=== PATIENT | male | born 1960 | race Caucasian/White ===

== ENCOUNTER 2017-03-18 20:44 | Emergency (ER) | payer BC ==
[2017-03-18] MEDS ORDERED: Metoclopramide 10 MG/2 ML SDV IV ONE (21:02)
[2017-03-18] MEDS ORDERED: HYDROmorphone 2 MG/ML Syringe IVPUSH ONE (21:02)
[2017-03-18] MEDS ORDERED: Ondansetron 4 MG/2 ML SDV IVPUSH ONE (21:02)
[2017-03-18] MEDS ORDERED: diphenhydrAMINE 50 MG/ML SDV IVPUSH ONE (21:02)
[2017-03-18] MEDS ORDERED: Sodium Chloride 0.9% 2.5 ML Syringe FLUSH PRN (21:02)
[2017-03-18] MEDS ORDERED: Sodium Chloride 0.9% 10 ML Syringe FLUSH PRN (21:02)
[2017-03-18] MEDS ORDERED: Sodium Chloride 0.9% 1,000 ML IV ONE (21:02)
[2017-03-18 21:06] VITALS: BP 142/79
--- NOTE | 2017-03-18 21:06 | EDM.PDOC ---
ED HPI GENERAL MEDICAL PROBLEM - General Chief Complaint: Headache Stated Complaint: SEVERE HEADACHES Time Seen by Provider: 03/18/17 20:55 - History of Present Illness INITIAL COMMENTS - FREE TEXT/NARRATIVE: HISTORY AND PHYSICAL: History of present illness: Patient is a 56-year-old white male with history of hypertension and non-insulin -dependent diabetes who presents with concern of headache 2-3 weeks he thought this was dental in origin E did see his dentist he had a cavity that was repaired he has been on antibiotics for this problem. He states this is left- sided he equivocates regarding photophobia he has had nausea without vomiting he states is located primarily in the temporal area and is unilateral and left- sided he denies trauma neck stiffness neck pain he denies history of chronic headaches he states he has had headaches but they've usually resolve with just aspirin or Tylenol he's never been told he has migraines and has no family history of such Review of systems: As per history of present illness and below otherwise all systems reviewed and negative. Past medical history: As per history of present illness and as reviewed below otherwise noncontributory. Surgical history: As per history of present illness and as reviewed below otherwise noncontributory. Social history: No reported history of drug or alcohol abuse. Family history: As per history of present illness and as reviewed below otherwise noncontributory. Physical exam: HEENT: Atraumatic, normocephalic, pupils reactive, negative for conjunctival pallor or scleral icterus, mucous membranes moist, throat clear, neck supple, nontender, trachea midline. Lungs: Clear to auscultation, breath sounds equal bilaterally, chest nontender. Heart: S1S2, regular, negative for clicks, rubs, or JVD. Abdomen: Soft, nondistended, nontender. Negative for masses or hepatosplenomegaly. Negative for costovertebral tenderness. Pelvis: Stable nontender. Genitourinary: Deferred. Rectal: Deferred. Extremities: Atraumatic, negative for cords or calf pain. Neurovascular unremarkable. Neuro: Awake, alert, oriented. Cranial nerves II through XII unremarkable. Cerebellum unremarkable. Motor and sensory unremarkable throughout. Exam nonfocal. Diagnostics: CBC CMP ESR EKG chest x-ray CT brain CT maxillofacial/sinus Therapeutics: Normal saline 1 L bolus Dilaudid 1 mg IV Reglan 10 mg IV Benadryl 50 mg IV Zofran 4 mg IV Impression: #1 cephalgia #2 history of hypertension #3 history of non-insulin diabetes Definitive disposition and diagnosis as appropriate pending reevaluation and review of above. - Related Data Allergies Allergy/AdvReac Type Severity Reaction Status Date / Time No Known Allergies Allergy Verified 07/04/15 13:20 Home Meds: Home Meds Gabapentin [Neurontin] 1 - 2 tab PO BEDTIME 07/04/15 [History] Insulin Aspart [NovoLOG] 14 unit SQ TIDMEALS 07/04/15 [History] Insulin Glarg,Human.Rec.Analog [Lantus] 44 unit SQ ACBREAKFAST 07/04/15 [History ] Liraglutide [Victoza] 1.2 mg SQ DAILY 07/04/15 [History] Lisinopril 1 tab PO DAILY 07/04/15 [History] metFORMIN HCl [Metformin HCl] 1 tab PO ACBREAKFAST 07/04/15 [History] metFORMIN HCl [Metformin HCl] 2 tab PO WITHDINNER 07/04/15 [History] Past Medical History HEENT History: Reports: Sinusitis Other HEENT History: Hearing aid on Left Cardiovascular History: Reports: Hypertension Other Respiratory History: Sleep apnea with Machine Other Musculoskeletal History: hx: Fracturing Cheekbone, Hands and a foot Endocrine/Metabolic History: Reports: Diabetes, Type II - Past Surgical History Other Musculoskeletal Surgeries/Procedures:: Right total knee replacement Social & Family History - Tobacco Use Smoking Status *Q: Current Every Day Smoker Years of Tobacco use: 36 Packs/Tins Daily: 1 Second Hand Smoke Exposure: No - Caffeine Use Caffeine Use: Reports: Coffee - Alcohol Use Days Per Week of Alcohol Use: 4 Number of Drinks Per Day: 2 Total Drinks Per Week: 8 - Recreational Drug Use Recreational Drug Use: No Drug Use in Last 12 Months: No ED ROS GENERAL - Review of Systems Review Of Systems: ROS reveals no pertinent complaints other than HPI. ED EXAM, GENERAL - Physical Exam Exam: See Below (See dictation) Course - Vital Signs Last Recorded V/S: Last Vital Signs Temp 36.9 C 03/18/17 21:03 Pulse 76 03/18/17 21:03 Resp 20 03/18/17 21:03 BP 142/79 H 03/18/17 21:03 Pulse Ox 94 L 03/18/17 21:03 - Orders/Labs/Meds Orders: Active Orders 24 hr Category Date Time Status EKG Documentation Completion [RC] STAT Care 03/18/17 21:00 Active Pulse Oximetry [RC] ASDIRECTED Care 03/18/17 21:00 Active Chest 1V Frontal [CR] Stat Exams 03/18/17 21:02 Taken Head wo Cont [CT] Stat Exams 03/18/17 21:02 Taken Max Facial Sinus wo Cont [CT] Stat Exams 03/18/17 21:02 Taken Sodium Chloride 0.9% [Saline Flush] Med 03/18/17 21:02 Active 10 ml FLUSH ASDIRECTED PRN Sodium Chloride 0.9% [Saline Flush] Med 03/18/17 21:02 Active 2.5 ml FLUSH ASDIRECTED PRN Saline Lock Insert [OM.PC] Stat Oth 03/18/17 21:00 Ordered Medication Orders Sodium Chloride (Saline Flush) 10 ml FLUSH ASDIRECTED PRN PRN Reason: Keep Vein Open Sodium Chloride (Saline Flush) 2.5 ml FLUSH ASDIRECTED PRN PRN Reason: Keep Vein Open Labs: Laboratory Tests 03/18/17 03/18/17 03/18/17 Range/Units 21:17 21:17 21:17 WBC 11.36 H (4.0-11.0) K/uL RBC 5.34 (4.50-5.90) M/uL Hgb 16.3 (13.0-17.0) g/dL Hct 46.5 (38.0-50.0) % MCV 87.1 (80.0-98.0) fL MCH 30.5 (27.0-32.0) pg MCHC 35.1 (31.0-37.0) g/dL RDW Std Deviation 42.1 (28.0-62.0) fl RDW Coeff of Claire 14 (11.0-15.0) % Plt Count 184 (150-400) K/uL MPV 10.70 (7.40-12.00) fL Neut % (Auto) 61.2 (48.0-80.0) % Lymph % (Auto) 29.0 (16.0-40.0) % Gregory % (Auto) 7.9 (0.0-15.0) % Eos % (Auto) 1.5 (0.0-7.0) % Baso % (Auto) 0.4 (0.0-1.5) % Neut # (Auto) 6.9 H (1.4-5.7) K/uL Lymph # (Auto) 3.3 H (0.6-2.4) K/uL Gregory # (Auto) 0.9 H (0.0-0.8) K/uL Eos # (Auto) 0.2 (0.0-0.7) K/uL Baso # (Auto) 0.1 (0.0-0.1) K/uL ESR (0-19) mm/hr INR 0.99 (0.86-1.11) ABG Carboxyhemoglobin (0-15) % Sodium 138 (136-146) mmol/L Potassium 4.0 (3.5-5.1) mmol/L Chloride 104 (98-110) mmol/L Carbon Dioxide 24 (21-31) mmol/L BUN 15 (6.0-23.0) mg/dL Creatinine 0.9 (0.6-1.5) mg/dL Est Cr Clr Drug Dosing 115.50 mL/min Estimated GFR (MDRD) > 60.0 ml/min Glucose 141 H (60-110) mg/dL Calcium 9.7 (8.8-10.8) mg/dL Total Bilirubin 0.4 (0.1-1.5) mg/dL AST 20 (5-40) IU/L ALT 33 (8-54) IU/L Alkaline Phosphatase 78 (40-150) Total Protein 7.8 (6.0-8.0) g/dL Albumin 4.1 (3.5-5.0) g/dL Globulin 3.7 H (2.0-3.5) g/dL Albumin/Globulin Ratio 1.1 L (1.3-2.8) 03/18/17 03/18/17 Range/Units 21:17 21:17 WBC (4.0-11.0) K/uL RBC (4.50-5.90) M/uL Hgb (13.0-17.0) g/dL Hct (38.0-50.0) % MCV (80.0-98.0) fL MCH (27.0-32.0) pg MCHC (31.0-37.0) g/dL RDW Std Deviation (28.0-62.0) fl RDW Coeff of Claire (11.0-15.0) % Plt Count (150-400) K/uL MPV (7.40-12.00) fL Neut % (Auto) (48.0-80.0) % Lymph % (Auto) (16.0-40.0) % Gregory % (Auto) (0.0-15.0) % Eos % (Auto) (0.0-7.0) % Baso % (Auto) (0.0-1.5) % Neut # (Auto) (1.4-5.7) K/uL Lymph # (Auto) (0.6-2.4) K/uL Gregory # (Auto) (0.0-0.8) K/uL Eos # (Auto) (0.0-0.7) K/uL Baso # (Auto) (0.0-0.1) K/uL ESR 4 (0-19) mm/hr INR (0.86-1.11) ABG Carboxyhemoglobin 5.1 (0-15) % Sodium (136-146) mmol/L Potassium (3.5-5.1) mmol/L Chloride (98-110) mmol/L Carbon Dioxide (21-31) mmol/L BUN (6.0-23.0) mg/dL Creatinine (0.6-1.5) mg/dL Est Cr Clr Drug Dosing mL/min Estimated GFR (MDRD) ml/min Glucose (60-110) mg/dL Calcium (8.8-10.8) mg/dL Total Bilirubin (0.1-1.5) mg/dL AST (5-40) IU/L ALT (8-54) IU/L Alkaline Phosphatase (40-150) Total Protein (6.0-8.0) g/dL Albumin (3.5-5.0) g/dL Globulin (2.0-3.5) g/dL Albumin/Globulin Ratio (1.3-2.8) Meds: Medications Generic Name Dose Route Start Last Admin Trade Name Freq PRN Reason Stop Dose Admin Sodium Chloride 10 ml 03/18/17 21:02 Saline Flush FLUSH ASDIRECTED PRN Keep Vein Open Sodium Chloride 2.5 ml 03/18/17 21:02 Saline Flush FLUSH ASDIRECTED PRN Keep Vein Open Discontinued Medications Generic Name Dose Route Start Last Admin Trade Name Leopoldo PRN Reason Stop Dose Admin Diphenhydramine HCl 50 mg 03/18/17 21:02 03/18/17 21:22 Benadryl IVPUSH 03/18/17 21:03 50 mg ONETIME ONE Administration Hydromorphone HCl 1 mg 03/18/17 21:02 03/18/17 21:22 Dilaudid IVPUSH 03/18/17 21:03 1 mg ONETIME ONE Administration Sodium Chloride 1,000 mls @ 999 mls/hr 03/18/17 21:02 03/18/17 21:25 Normal Saline IV 03/18/17 22:02 999 mls/hr STAT ONE Administration Metoclopramide HCl 10 mg 03/18/17 21:02 03/18/17 21:21 Reglan IV 03/18/17 21:03 10 mg ONETIME ONE Administration Ondansetron HCl 4 mg 03/18/17 21:02 03/18/17 21:22 Zofran IVPUSH 03/18/17 21:03 4 mg ONETIME ONE Administration Departure - Departure Time of Disposition: 22:50 Disposition: Home, Self-Care 01 Condition: Good Clinical Impression: Cephalgia - Discharge Information Forms: ED Department Discharge Additional Instructions: The following information is given to patients seen in the emergency department who are being discharged to home. This information is to outline your options for follow-up care. We provide all patients seen in our emergency department with a follow-up referral. The need for follow-up, as well as the timing and circumstances, are variable depending upon the specifics of your emergency department visit. If you don't have a primary care physician on staff, we will provide you with a referral. We always advise you to contact your personal physician following an emergency department visit to inform them of the circumstance of the visit and for follow-up with them and/or the need for any referrals to a consulting specialist. The emergency department will also refer you to a specialist when appropriate. This referral assures that you have the opportunity for followup care with a specialist. All of these measure are taken in an effort to provide you with optimal care, which includes your followup. Under all circumstances we always encourage you to contact your private physician who remains a resource for coordinating your care. When calling for followup care, please make the office aware that this follow-up is from your recent emergency room visit. If for any reason you are refused follow-up, please contact the [facility] emergency department at and asked to speak to the emergency department charge nurse. [facility] Specialty Care - Neurology Professional Building [address] [place] [address], [address] [place] [address] Follow-up primary medical doctor and neurology above call to schedule appointment return as needed as discussed - My Orders Last 24 Hours: My Active Orders 03/18/17 21:00 EKG Documentation Completion [RC] STAT Pulse Oximetry [RC] ASDIRECTED Saline Lock Insert [OM.PC] Stat 03/18/17 21:02 Chest 1V Frontal [CR] Stat Head wo Cont [CT] Stat Max Facial Sinus wo Cont [CT] Stat Sodium Chloride 0.9% [Saline Flush] 10 ml FLUSH ASDIRECTED PRN Sodium Chloride 0.9% [Saline Flush] 2.5 ml FLUSH ASDIRECTED PRN - Assessment/Plan Last 24 Hours: My Active Orders 03/18/17 21:00 EKG Documentation Completion [RC] STAT Pulse Oximetry [RC] ASDIRECTED Saline Lock Insert [OM.PC] Stat 03/18/17 21:02 Chest 1V Frontal [CR] Stat Head wo Cont [CT] Stat Max Facial Sinus wo Cont [CT] Stat Sodium Chloride 0.9% [Saline Flush] 10 ml FLUSH ASDIRECTED PRN Sodium Chloride 0.9% [Saline Flush] 2.5 ml FLUSH ASDIRECTED PRN
[2017-03-18 21:47] LABS: CHLORIDE,CL 104 mmol/L (98-110); SODIUM,NA 138 mmol/L (136-146)
--- NOTE | 2017-03-19 14:27 | CR ---
EXAM DATE: 03/18/17 PATIENT'S AGE: 56 Patient: STEVE CAROLINA Facility: [place], [place] Site . Site : 1960 Study: XRay Chest [id number]/16/2017 9:57:41 PM Ordering Physician: Lambert Campbell Final Report: INDICATION: PAIN X 2 WEEKS EXTREME HEADACHES TECHNIQUE: Chest 1 view. COMPARISON: 09/08/16 FINDINGS: Cardiovascular and mediastinum: Heart size and vasculature are normal in caliber and appearance. Mediastinum is within normal limits. Lungs and pleural space: Lungs are clear. No sign of infiltrate or mass. No sign of pleural effusion. No pneumothorax. Bones and soft tissues: No significant findings. IMPRESSION: Unremarkable chest. Dictated by: Jose Sanchez MD @ 03/18/2017 22:01:23 (Electronic Signature) Report Signed by Proxy. OBDULIA
--- NOTE | 2017-03-19 14:28 | CT ---
EXAM DATE: 03/18/17 PATIENT'S AGE: 56 Patient: STEVE CAROLINA Facility: [place], [place] Site . Site : 1960 Study: CT Head [id number]/16/2017 9:58:32 PM Ordering Physician: Lambert Campbell Final Report: INDICATION: Extremely headaches x multiple weeks TECHNIQUE: CT head without contrast. COMPARISON: None FINDINGS: CSF spaces: Within normal limits for age. Brain parenchyma: The ojeda-white differentiation is normal. No sign of mass, hemorrhage, or midline shift. Skull base and calvarium: The visualized paranasal sinuses and mastoid air cells demonstrate no acute or significant findings. The visualized orbits are grossly unremarkable. No skull fractures. IMPRESSION: Unremarkable noncontrast head CT. Dictated by Jose Sanchez MD @ 03/18/2017 10:06:21 PM Dictated by: Jose Sanchez MD @ 03/18/2017 22:06:26 (Electronic Signature) Report Signed by Proxy. UN[facility] HOSPITALL[facility]by
--- NOTE | 2017-03-19 14:28 | CT ---
EXAM DATE: 03/18/17 PATIENT'S AGE: 56 Patient: STEVE CAROLINA Facility: [place], [place] Site . Site : 1960 Study: CT Facial [id number]/16/2017 10:01:08 PM Ordering Physician: Lambert Campbell Final Report: INDICATION: Facial pain TECHNIQUE: CT maxillofacial without contrast. COMPARISON: None FINDINGS: Facial bones: No fractures or bone lesions. Specifically the nasal bones, temporomandibular joints, maxilla and mandible appear intact. Orbits and globes: Unremarkable. Sinuses: Minimal mucosal thickening predominantly of the frontal, ethmoid and maxillary sinuses. Soft tissues: Unremarkable. IMPRESSION: Minimal mucosal thickening predominantly involving the frontal, ethmoid and maxillary sinuses. Otherwise grossly normal CT scan of the facial bones. Dictated by Jose Sanchez MD @ 03/18/2017 10:15:16 PM Dictated by: Jose Sanchez MD @ 03/18/2017 22:15:25 (Electronic Signature) Report Signed by Proxy. OBDULIA
== END 2017-03-18 23:51 | disposition home or self-care (01) ==
LOC: MW.ED 20:44
DX: R51 Headache (principal); I10 Essential (primary) hypertension; E11.9 Type 2 diabetes mellitus without complications; G47.30 Sleep apnea, unspecified; F17.210 Nicotine dependence, cigarettes, uncomplicated; Z96.651 Presence of right artificial knee joint; Z79.4 Long term (current) use of insulin; Z79.899 Other long term (current) drug therapy
CPT/HCPCS: 70450; 70486; 71010; 80053; 82375; 85025; 85610; 85652; 93005; 99284; J1170; J1200; J2405; J2765; J7040

== ENCOUNTER 2017-07-12 19:22 | Emergency (ER) | payer BC ==
[2017-07-12 19:32] VITALS: BP 137/80
--- NOTE | 2017-07-12 19:43 | EDM.PDOC ---
ED HPI GENERAL MEDICAL PROBLEM - General Chief Complaint: Genitourinary Problem Stated Complaint: BLOOD IN URINE Time Seen by Provider: 07/12/17 19:33 - History of Present Illness INITIAL COMMENTS - FREE TEXT/NARRATIVE: HISTORY AND PHYSICAL: History of present illness: The patient is a 57-year-old male who follows at [facility] with a history of diabetes and hypertension who presents to the ER with a 1-1/2 day history of increased urinary frequency decreased urine output burning with urination and seeing blood at the end of the stream of his urine. He has no testicular pain or swelling no flank pain no abdominal pain and does not feel like he is retaining urine. He has no fever chills cough runny nose sore throat abdominal pain vomiting or diarrhea. He says that he has had his prostate checked in the past but it is several years ago. He has no STD risks. He says that he feels the urge to go to the bathroom and only small amounts will come out and his urinary stream is significantly diminished from his usual. He has no specific suprapubic discomfort. Review of systems: As per history of present illness and below otherwise all systems reviewed and negative. Past medical history: As per history of present illness and as reviewed below otherwise noncontributory. Surgical history: As per history of present illness and as reviewed below otherwise noncontributory. Social history: No reported history of drug or alcohol abuse. Family history: As per history of present illness and as reviewed below otherwise noncontributory. Physical exam: Gen.: Well-developed well-nourished overweight male who is nontoxic and vital signs of the note by me. HEENT: Atraumatic, normocephalic, negative for conjunctival pallor or scleral icterus, mucous membranes moist, throat clear, neck supple, nontender, trachea midline. Lungs: Clear to auscultation, breath sounds equal bilaterally, chest nontender. Heart: S1S2, regular rate and rhythm no overt murmurs Abdomen: Soft, nondistended, nontender. NABS Negative for costovertebral tenderness. Pelvis: Deferred Genitourinary: Deferred. Rectal: Deferred. Extremities: Atraumatic, negative for cords or calf pain. Neurovascular unremarkable. Neuro: Awake, alert, oriented. Cranial nerves II through XII unremarkable. Cerebellum unremarkable. Motor and sensory unremarkable throughout. Exam nonfocal. Diagnostics: UA urine culture bladder scan [employer]: [] bladder scan post void was = 11cc Impression: UTI Definitive disposition and diagnosis as appropriate pending reevaluation and review of above. Perineal Area Pain Score (Numeric/FACES): 9 - Related Data Allergies Allergy/AdvReac Type Severity Reaction Status Date / Time No Known Allergies Allergy Verified 03/19/17 05:01 Home Meds: Home Meds Gabapentin [Neurontin] 3 tab PO BEDTIME 07/04/15 [History] Insulin Aspart [NovoLOG] 10 unit SQ ACBREAKFASTANDBED 07/04/15 [History] Insulin Glarg,Human.Rec.Analog [Lantus] 42 unit SQ ACBREAKFAST 07/04/15 [History ] Liraglutide [Victoza] 18 mg SQ DAILY 07/04/15 [History] Lisinopril 1 tab PO DAILY 07/04/15 [History] metFORMIN HCl [Metformin HCl] 1 tab PO ACBREAKFAST 07/04/15 [History] metFORMIN HCl [Metformin HCl] 1 tab PO WITHDINNER 07/04/15 [History] Amoxicillin 500 mg PO TID 03/19/17 [History] Past Medical History HEENT History: Reports: Sinusitis Other HEENT History: Hearing aid on Left Cardiovascular History: Reports: Hypertension Other Respiratory History: Sleep apnea with Machine Other Musculoskeletal History: hx: Fracturing Cheekbone, Hands and a foot Endocrine/Metabolic History: Reports: Diabetes, Type II - Past Surgical History Other Musculoskeletal Surgeries/Procedures:: Right total knee replacement Social & Family History - Family History Family Medical History: Noncontributory - Tobacco Use Smoking Status *Q: Current Every Day Smoker Years of Tobacco use: 25 Packs/Tins Daily: 1 Second Hand Smoke Exposure: No - Caffeine Use Caffeine Use: Reports: Coffee - Alcohol Use Days Per Week of Alcohol Use: 4 Number of Drinks Per Day: 2 Total Drinks Per Week: 8 - Recreational Drug Use Recreational Drug Use: No Drug Use in Last 12 Months: No ED ROS GENERAL - Review of Systems Review Of Systems: ROS reveals no pertinent complaints other than HPI. ED EXAM, GENERAL - Physical Exam Exam: See Below (See dictation) Course - Vital Signs Last Recorded V/S: Last Vital Signs Temp 36.6 C 07/12/17 19:30 Pulse 87 12/10/17 19:30 Resp 18 07/12/17 19:30 BP 137/80 07/12/17 19:30 Pulse Ox 99 07/12/17 19:30 - Orders/Labs/Meds Orders: Active Orders 24 hr Category Date Time Status Blood Glucose Check, Bedside [RC] ONETIME Care 07/12/17 19:43 Active CULTURE URINE [RM] Stat Lab 07/12/17 19:43 Received Labs: Laboratory Tests 07/12/17 07/12/17 Range/Units 19:43 20:16 POC Glucose 216 H (60-110) mg/dL Urine Color YELLOW Urine Appearance SLT CLOUDY Urine pH 5.5 (5.0-8.0) Ur Specific Allen >= 1.030 (1.001-1.035) Urine Protein 100 (NEGATIVE) mg/dL Urine Glucose (UA) NEGATIVE (NEGATIVE) mg/dL Urine Ketones NEGATIVE (NEGATIVE) mg/dL Urine Occult Blood LARGE H (NEGATIVE) Urine Nitrite POSITIVE H (NEGATIVE) Urine Bilirubin NEGATIVE (NEGATIVE) Urine Urobilinogen 0.2 (<2.0) EU/dL Ur Leukocyte Esterase SMALL (NEGATIVE) Urine RBC 40-50 (0-2/HPF) Urine WBC 20-30 (0-5/HPF) Ur Epithelial Cells OCCASIONAL (NONE-FEW) Urine Bacteria 1+ H (NEGATIVE) Departure - Departure Time of Disposition: 20:32 Disposition: Home, Self-Care 01 Condition: Good Clinical Impression: UTI, Urinary tract infectious disease - Discharge Information Referrals: Jon Garland MD [Primary Care Provider] - Forms: ED Department Discharge Additional Instructions: The following information is given to patients seen in the emergency department who are being discharged to home. This information is to outline your options for follow-up care. We provide all patients seen in our emergency department with a follow-up referral. The need for follow-up, as well as the timing and circumstances, are variable depending upon the specifics of your emergency department visit. If you don't have a primary care physician on staff, we will provide you with a referral. We always advise you to contact your personal physician following an emergency department visit to inform them of the circumstance of the visit and for follow-up with them and/or the need for any referrals to a consulting specialist. The emergency department will also refer you to a specialist when appropriate. This referral assures that you have the opportunity for followup care with a specialist. All of these measure are taken in an effort to provide you with optimal care, which includes your followup. Under all circumstances we always encourage you to contact your private physician who remains a resource for coordinating your care. When calling for followup care, please make the office aware that this follow-up is from your recent emergency room visit. If for any reason you are refused follow-up, please contact the [facility] emergency department at and ask to speak to the emergency department charge nurse. [address] [place] [address] [facility] Primary care- Internal Medicine and Family [address] [address] Please push hydration and taking antibiotics until they're finished. Please call your provider for follow-up and prostate exam as we discussed. Please return to ER as needed and as discussed. You have been given Cipro antibiotics via [facility] - My Orders Last 24 Hours: My Active Orders 07/12/17 19:43 Blood Glucose Check, Bedside [RC] ONETIME CULTURE URINE [RM] Stat - Assessment/Plan Last 24 Hours: My Active Orders 07/12/17 19:43 Blood Glucose Check, Bedside [RC] ONETIME CULTURE URINE [RM] Stat
== END 2017-07-12 20:44 | disposition home or self-care (01) ==
LOC: MW.ED 19:22
DX: N39.0 Urinary tract infection, site not specified (principal); I10 Essential (primary) hypertension; E11.9 Type 2 diabetes mellitus without complications; F17.210 Nicotine dependence, cigarettes, uncomplicated; Z79.4 Long term (current) use of insulin; Z79.899 Other long term (current) drug therapy
CPT/HCPCS: 51798; 81001; 82962; 87086; 87088; 87186; 99283

== ENCOUNTER 2017-08-28 08:17 | Day surgery (SDC) | payer BC ==
[~2017-08-28 08:17] MED LIST: Acetaminophen/HYDROcodone 325-5 MG Tab PO PRN; Atropine 0.1 MG/ML 10 ML Syringe ONE; Bupivacaine 0.25%/EPINEPHrine 1:200,000 10 ML SDV INJECT ONE; Ketorolac 30 MG/ML SDV ONE; Lactated Ringers 1,000 ML IV SCH; Lidocaine 2% 5 ML SDV ONE; Midazolam 1 MG/ML 2 ML SDV ONE; Ondansetron 4 MG/2 ML SDV ONE; Propofol 200 MG/20 ML SDV ONE; ceFAZolin 2 GM in Premix Bag 1 BAG IV ONE; fentaNYL 100 MCG/2 ML SDV ONE
--- NOTE | 2017-08-28 09:00 | PCM.PREANE ---
Preanesthetic Assessment - Anesthesia/Transfusion/Family Hx Anesthesia History: Prior Anesthesia Without Reaction Family History of Anesthesia Reaction: No Transfusion History: No Prior Transfusion(s) - Review of Systems General: No Symptoms Pulmonary: No Symptoms Cardiovascular: No Symptoms Gastrointestinal: No Symptoms Neurological: No Symptoms Other: Reports: None - Physical Assessment NPO Status Date: 08/27/17 Height: 1.96 m Weight: 141.974 kg ASA Class: 2 Mental Status: Alert & Oriented x3 Airway Class: Mallampati = 2 Dentition: Reports: Harriman(s) (central incisors) ROM/Head Extension: Full Lungs: Clear to Auscultation, Normal Respiratory Effort Cardiovascular: Regular Rate, Regular Rhythm - Allergies Allergies/Adverse Reactions: Allergies Allergy/AdvReac Type Severity Reaction Status Date / Time No Known Allergies Allergy Verified 08/25/17 14:11 - Anesthesia Plan Pre-Op Medication Ordered: None - Acknowledgements Anesthesia Type Planned: General Anesthesia Pt an Appropriate Candidate for the Planned Anesthesia: Yes Alternatives and Risks of Anesthesia Discussed w Pt/Guardian: Yes Pt/Guardian Understands and Agrees with Anesthesia Plan: Yes Additional Comments: has NICOLE, DM2, HTN, smoker. Plan GA-LMA PreAnesthesia Questionnaire HEENT History: Reports: Sinusitis Other HEENT History: Hearing aid on Left, wears glasses Cardiovascular History: Reports: Hypertension Respiratory History: Reports: Sleep Apnea Other Respiratory History: Sleep apnea with Machine Gastrointestinal History: Reports: None Genitourinary History: Reports: None Other Musculoskeletal History: hx: Fx collarbone, Hands and foot Neurological History: Reports: None Endocrine/Metabolic History: Reports: Diabetes, Type II, Obesity/BMI 30+ - Past Surgical History Head Surgeries/Procedures: Reports: None GI Surgical History: Reports: Appendectomy Neurological Surgical History: Reports: C-Spine Other Neurological Surgeries/Procedures: hx neck surgery Musculoskeletal Surgical History: Reports: Arthroscopic Knee, Knee Replacement Other Musculoskeletal Surgeries/Procedures:: Right total knee replacement, hx foot surgery - SUBSTANCE USE Smoking Status *Q: Current Every Day Smoker Tobacco Use Within Last Twelve Months: Cigarettes, Smokeless Tobacco, Snuff/Dip Other Tobacco Use Within Last Twelve Months: Chewing tobacco 1 can every couple days, smokes 1/2 pk per day Second Hand Smoke Exposure: No Days Per Week of Alcohol Use: 4 Number of Drinks Per Day: 2 Total Drinks Per Week: 8 Recreational Drug Use History: No - HOME MEDS Home Medications: Home Meds Gabapentin [Neurontin] 600 mg PO BEDTIME 07/04/15 [History] Insulin Aspart [NovoLOG] 11 unit SQ ACBREAKFASTANDBED 07/04/15 [History] Insulin Glarg,Human.Rec.Analog [Lantus] 42 unit SQ ACBREAKFAST 07/04/15 [History ] Liraglutide [Victoza] 1.8 mg SQ DAILY 07/04/15 [History] Lisinopril 10 mg PO DAILY 07/04/15 [History] metFORMIN HCl [Metformin HCl] 500 mg PO BID 07/04/15 [History] Diclofenac Sodium [Voltaren] 75 mg PO BID 08/25/17 [History] - CURRENT (IN HOUSE) MEDS Current Meds: Current Medications Hydrocodone Bitart/Acetaminophen ([place] 325-5 Mg) 1 - 2 tab PO Q4H PRN PRN Reason: Pain Lactated Ringer's (Ringers, Lactated) 1,000 mls @ 500 mls/hr IV .BOLUS LESLY Last Admin: 08/28/17 08:42 Dose: 500 mls/hr Discontinued Medications Atropine Sulfate (Atropine 0.1 Mg/Ml) Confirm Administered Dose 1 mg .ROUTE .STK -MED ONE Stop: 08/28/17 07:55 Bupivacaine HCl/Epinephrine Bitart (Marcaine 0.25%/Epinephrine 1:200,000) 10 ml INJECT ONETIME ONE Stop: 08/28/17 08:01 Fentanyl (Sublimaze) Confirm Administered Dose 100 mcg .ROUTE .STK-MED ONE Stop: 08/28/17 07:56 Cefazolin Sodium/Dextrose 2 gm (/ Premix) 50 mls @ 100 mls/hr IV ONETIME ONE Stop: 08/28/17 08:29 Ketorolac Tromethamine (Toradol) Confirm Administered Dose 30 mg .ROUTE .STK- MED ONE Stop: 08/28/17 07:55 Lidocaine (Xylocaine-Mpf 2%) Confirm Administered Dose 5 ml .ROUTE .STK-MED ONE Stop: 08/28/17 07:55 Midazolam HCl (Versed 1 Mg/Ml) Confirm Administered Dose 2 mg .ROUTE .STK-MED ONE Stop: 08/28/17 07:56 Ondansetron HCl (Zofran) Confirm Administered Dose 4 mg .ROUTE .STK-MED ONE Stop: 08/28/17 07:55 Propofol (Diprivan 20 Ml) Confirm Administered Dose 200 mg .ROUTE .STK-MED ONE Stop: 08/28/17 07:56
[2017-08-28] MEDS ORDERED: Bupivacaine 25%/EPINEPHrine/PF 30 ML ONE (09:11)
[2017-08-28] MEDS: fentaNYL 100 MCG/2 ML SDV IVPUSH PRN ×2 (10:45→10:50)
--- NOTE | 2017-08-28 10:50 | PCM.POSTAN ---
POST ANESTHESIA ASSESSMENT - MENTAL STATUS Mental Status: Alert, Oriented - RESPIRATORY Respiratory Status: Respiratory Rate WNL, Airway Patent, O2 Saturation Stable - CARDIOVASCULAR CV Status: Pulse Rate WNL, Blood Pressure Stable - GASTROINTESTINAL GI Status: No Symptoms - POST OP HYDRATION Hydration Status: Adequate & Stable
--- NOTE | 2017-08-28 11:16 | PCM48HPAN ---
Post Anesthesia Note - EVALUATION WITHIN 48HRS OF ANESTHETIC Vital Signs in Normal Range: Yes Patient Participated in Evaluation: Yes Respiratory Function Stable: Yes Airway Patent: Yes Cardiovascular Function Stable: Yes Hydration Status Stable: Yes Pain Control Satisfactory: Yes Nausea and Vomiting Control Satisfactory: Yes Mental Status Recovered: Yes
[2017-08-28 12:33] VITALS: BP 138/85
--- NOTE | 2017-08-28 13:22 | PCM.OPNOTE ---
- General Post-Op/Procedure Note Date of Surgery/Procedure: 08/28/17 Operative Procedure(s): right cubital tunnel release Pre Op Diagnosis: right cubital tunnel syndrome Post-Op Diagnosis: Same Anesthesia Technique: General LMA, Local Primary Surgeon: January Jeffrey [employer] Practice Manager: Gladis Cardenas Complications: None Condition: Good Free Text/Narrative:: Intake & Output 08/27/17 08/28/17 08/28/17 23:59 07:59 15:59 Intake Total 1100 Balance 1100 [id number]
--- NOTE | 2017-08-28 20:52 | OR ---
SURGEON: NEVA RYDER MD DATE OF PROCEDURE: 08/28/2017 PREOPERATIVE DIAGNOSIS: Right cubital tunnel syndrome. POSTOPERATIVE DIAGNOSIS: Right cubital tunnel syndrome. PROCEDURE: Right cubital tunnel release. INDICATIONS: Mr. Rock is a 57-year-old gentleman with cubital tunnel syndrome. Risks and benefits of release were discussed with him and he is in agreement to proceed. Risks were including but not limited to bleeding, infection, damage to underlying or overlying structures, possible need for future interventions, possible scarring. PROCEDURE DETAILS: After informed consent was obtained and placed on the chart, the patient was brought to the operating theater and laid in supine position. After adequate general LMA anesthesia was obtained, the area was prepped and draped and a time- out was completed to confirm side and site. Local anesthesia was injected, the arm was exsanguinated, and tourniquet was insufflated to 200 mmHg. Attention was then paid to dissection over the cubital tunnel. Dissection was first carried through the skin and subcutaneous tissues using a knife and Littler scissor. Once adequately dissected, the nerve was located. Care was taken to dissect the cubital tunnel along its length. The proximal dissection ended at passing a finger up into the arm with sufficient space after release of the brachial fascia. Distal dissection was completed after the flexor carpi ulnaris muscle was split until finger could be passed with no compression on the nerve itself. Significant amount of scar tissue was around the nerve as well and this was freed up. Once adequately released, hemostasis was obtained, and the tourniquet was desufflated to ensure hemostasis. Once this was completed, the wound was closed using a 3-0 Monocryl stitch for deep dermal stitches and a running 4-0 subcuticular for the skin. The wound was dressed with Steri-Strips. The patient tolerated this well. All counts and needles were correct at the end of the case. FOLLOWUP INSTRUCTIONS: The patient will see us in about a week to 10 days or sooner if any problems, questions, or concerns. He was given a prescription for tramadol for pain control. HEGGTHE / RADHA /[id number]
== END 2017-08-28 11:45 | disposition home or self-care (01) ==
LOC: MW.SDS 08:17
PROVIDERS: ATTEND Plastic Surgery
DX: G56.21 Lesion of ulnar nerve, right upper limb (principal); M47.812 Spondylosis without myelopathy or radiculopathy, cervical region; E11.40 Type 2 diabetes mellitus with diabetic neuropathy, unspecified; I10 Essential (primary) hypertension; M75.41 Impingement syndrome of right shoulder; G43.909 Migraine, unspecified, not intractable, without status migrainosus; E66.9 Obesity, unspecified; G47.30 Sleep apnea, unspecified; N52.9 Male erectile dysfunction, unspecified; F17.210 Nicotine dependence, cigarettes, uncomplicated; Z79.4 Long term (current) use of insulin; Z79.899 Other long term (current) drug therapy; Z90.49 Acquired absence of other specified parts of digestive tract; Z96.651 Presence of right artificial knee joint; Z68.37 Body mass index [BMI] 37.0-37.9, adult; Z99.89 Dependence on other enabling machines and devices
CPT/HCPCS: 64718; J0461; J1885; J2250; J2405; J3010; J7120; 01810; 82962; J0690; J2704

== ENCOUNTER 2018-09-20 06:40 | Day surgery (SDC) | payer BC ==
[~2018-09-20 06:40] MED LIST changes: -Acetaminophen/HYDROcodone 325-5 MG Tab PO PRN; -Atropine 0.1 MG/ML 10 ML Syringe ONE; -Bupivacaine 0.25%/EPINEPHrine 1:200,000 10 ML SDV INJECT ONE; +Ketorolac 10 MG Tab PO PRN; -Ketorolac 30 MG/ML SDV ONE; -Lidocaine 2% 5 ML SDV ONE; -Midazolam 1 MG/ML 2 ML SDV ONE; -Ondansetron 4 MG/2 ML SDV ONE; -Propofol 200 MG/20 ML SDV ONE; -ceFAZolin 2 GM in Premix Bag 1 BAG IV ONE; -fentaNYL 100 MCG/2 ML SDV ONE
[2018-09-20] MEDS ORDERED: Dexamethasone 4 MG/ML 5 ML MDV ONE (07:37)
[2018-09-20] MEDS ORDERED: Bupivacaine 0.5% 30 ML SDV ONE (07:38)
[2018-09-20] MEDS ORDERED: Midazolam 1 MG/ML 2 ML SDV ONE (07:40)
[2018-09-20] MEDS ORDERED: fentaNYL 250 MCG/5 ML SDV ONE (07:40)
[2018-09-20] MEDS ORDERED: Propofol 200 MG/20 ML SDV ONE ×2 (07:41→08:38)
--- NOTE | 2018-09-20 07:54 | PCM.PREANE ---
Preanesthetic Assessment - Anesthesia/Transfusion/Family Hx Anesthesia History: Prior Anesthesia Without Reaction Family History of Anesthesia Reaction: No Transfusion History: No Prior Transfusion(s) - Review of Systems General: No Symptoms Pulmonary: No Symptoms Cardiovascular: No Symptoms Gastrointestinal: No Symptoms Neurological: No Symptoms Other: Reports: None - Physical Assessment NPO Status Date: 09/19/18 NPO Status Time: 20:00 O2 Sat by Pulse Oximetry: 97 Respiratory Rate: 18 Vital Signs: Last Vital Signs Temp 97.2 F 09/20/18 07:29 Pulse 79 09/20/18 07:29 Resp 18 09/20/18 07:29 BP 132/75 09/20/18 07:29 Pulse Ox 97 09/20/18 07:29 Height: 6 ft 5 in Weight: 140.614 kg ASA Class: 3 Mental Status: Alert & Oriented x3 Airway Class: Mallampati = 2 Dentition: Reports: Normal Dentition ROM/Head Extension: Full Lungs: Clear to Auscultation, Normal Respiratory Effort Cardiovascular: Regular Rate, Regular Rhythm - Allergies Allergies/Adverse Reactions: Allergies Allergy/AdvReac Type Severity Reaction Status Date / Time No Known Allergies Allergy Verified 09/16/18 11:04 - Blood Blood Available: No - Anesthesia Plan Pre-Op Medication Ordered: Other (fent and versed with pre-op ISB) - Acknowledgements Anesthesia Type Planned: General Anesthesia Pt an Appropriate Candidate for the Planned Anesthesia: Yes Alternatives and Risks of Anesthesia Discussed w Pt/Guardian: Yes Pt/Guardian Understands and Agrees with Anesthesia Plan: Yes Additional Comments: PMH: NICOLE-uses CPAP, DM 1.5, diabetic neuropathy- on gabipentin, HTN PLAN: get with ISB for post op pain management. PreAnesthesia Questionnaire HEENT History: Reports: Other (See Below) Other HEENT History: wears glasses, has dental implants Cardiovascular History: Reports: Hypertension Respiratory History: Reports: Sleep Apnea Other Respiratory History: uses CPAP Gastrointestinal History: Reports: None Genitourinary History: Reports: None Musculoskeletal History: Reports: Fracture Other Musculoskeletal History: hx of fx hands,ribs and clavicle Neurological History: Reports: None Endocrine/Metabolic History: Reports: Diabetes, Type II, IDDM, Obesity/BMI 30+ - Past Surgical History Head Surgeries/Procedures: Reports: None GI Surgical History: Reports: Appendectomy Neurological Surgical History: Reports: C-Spine, Discectomy Other Neurological Surgeries/Procedures: hx neck surgery Musculoskeletal Surgical History: Reports: Knee Replacement Other Musculoskeletal Surgeries/Procedures:: Right total knee replacement, hx foot surgery - SUBSTANCE USE Smoking Status *Q: Current Every Day Smoker Tobacco Use Within Last Twelve Months: Cigarettes, Smokeless Tobacco Days Per Week of Alcohol Use: 3 Number of Drinks Per Day: 2 Total Drinks Per Week: 6 Recreational Drug Use History: No - HOME MEDS Home Medications: Home Meds Gabapentin [Neurontin] 1,200 mg PO BEDTIME 07/04/15 [History] Insulin Aspart [NovoLOG] 11 - 12 unit SQ ACBREAKFASTANDBED 07/04/15 [History] Insulin Glarg,Human.Rec.Analog [Lantus] 42 unit SQ ACBREAKFAST 07/04/15 [History ] Liraglutide [Victoza] 1.8 mg SQ QAM 07/04/15 [History] Lisinopril 10 mg PO DAILY 07/04/15 [History] metFORMIN HCl [Metformin HCl] 500 mg PO BID 07/04/15 [History] - CURRENT (IN HOUSE) MEDS Current Meds: Current Medications Hydrocodone Bitart/Acetaminophen ([place] 325-10 Mg) 1 - 2 tab PO Q4H PRN PRN Reason: Pain Cefazolin Sodium/Dextrose 2 gm (/ Premix) 50 mls @ 100 mls/hr IV ONCALL [facility] Lactated Ringer's (Ringers, Lactated) 1,000 mls @ 100 mls/hr IV ASDIRECTED [facility] Last Admin: 09/20/18 07:15 Dose: 100 mls/hr Ketorolac Tromethamine (Toradol) 10 mg PO Q6H PRN PRN Reason: Pain Stop: 09/22/18 13:22 Discontinued Medications Bupivacaine HCl (Marcaine 0.5%) Confirm Administered Dose 30 ml .ROUTE .STK-MED ONE Stop: 09/20/18 07:39 Dexamethasone (Dexamethasone) Confirm Administered Dose 20 mg .ROUTE .STK-MED ONE Stop: 09/20/18 07:38 Fentanyl (Sublimaze) Confirm Administered Dose 250 mcg .ROUTE .STK-MED ONE Stop: 09/20/18 07:41 Lidocaine HCl (Xylocaine-Mpf 1%) Confirm Administered Dose 5 mls @ as directed .ROUTE .STK-MED ONE Stop: 09/20/18 07:38 Midazolam HCl (Versed 1 Mg/Ml) Confirm Administered Dose 2 mg .ROUTE .STK-MED ONE Stop: 09/20/18 07:41 Propofol (Diprivan 20 Ml) Confirm Administered Dose 200 mg .ROUTE .STK-MED ONE Stop: 09/20/18 07:42
[2018-09-20] MEDS ORDERED: ceFAZolin 2 GM in Premix Bag 1 BAG IV SCH (08:00)
[2018-09-20] MEDS ORDERED: Acetaminophen/HYDROcodone 325-10 MG Tab PO PRN (08:00)
--- NOTE | 2018-09-20 08:17 | PCM.SN ---
- Free Text/Narrative Note: note - isb in pre op holding for post op pain management. consent obtained, risks and benefits discussed. time out performed, full monitoring including etco2, anxiolysis with fent 100 mcg and versed 1 mg, skin preped with chloroprep. lidocain skin wheel placed. 2" stimex needle used. twitch at 1 inch depth. repositioned untill good tritch on ant shoulder persisting to .40 ma, dosed incrementally in 5 ml increments. dosed with 28 mg of 0.5% bupivicain and 8 mg dexamethasone. no comps
[2018-09-20] MEDS ORDERED: Lidocaine 2% 5 ML SDV ONE (08:38)
[2018-09-20] MEDS ORDERED: Rocuronium 10 MG/ML 10 ML Syringe ONE (08:38)
[2018-09-20] MEDS ORDERED: ceFAZolin 1 GM Vial ONE (08:56)
[2018-09-20] MEDS ORDERED: Phenylephrine/Normal Saline 100 MCG/ML 10 ML Syringe ONE (09:31)
[2018-09-20] MEDS ORDERED: Metoclopramide 10 MG/2 ML SDV ONE (09:32)
[2018-09-20] MEDS ORDERED: diphenhydrAMINE 50 MG/ML SDV ONE (09:32)
[2018-09-20] MEDS ORDERED: Ketorolac 30 MG/ML SDV ONE (09:32)
[2018-09-20] MEDS ORDERED: Ondansetron 4 MG/2 ML SDV ONE (09:32)
[2018-09-20] MEDS ORDERED: Glycopyrrolate 0.2 MG/ML SDV ONE (09:59)
[2018-09-20] MEDS ORDERED: Neostigmine Methylsulfate 1 MG/ML 5 ML Syringe ONE (09:59)
--- NOTE | 2018-09-20 10:12 | PCM.OPNOTE ---
- General Post-Op/Procedure Note Date of Surgery/Procedure: 09/20/18 Operative Procedure(s): R shoulder arthroscopy with SAD, extensive debridement, and DCE Post-Op Diagnosis: R shoulder. 1. impingement syndrome. 2. biceps tendonopathy. 3. AC joint arthrtitis. 4. partial RTC tear. 5. deg anterior labral tear Anesthesia Technique: General ET Tube, Regional Block Primary Surgeon: Tanika Lubin [employer] Application Developer: Siomara Bustos [employer] Application Developer: Karina Ramos Condition: Good Free Text/Narrative:: #[id number]
--- NOTE | 2018-09-20 12:24 | PCM48HPAN ---
Post Anesthesia Note - EVALUATION WITHIN 48HRS OF ANESTHETIC Vital Signs in Normal Range: Yes Patient Participated in Evaluation: Yes Respiratory Function Stable: Yes Airway Patent: Yes Cardiovascular Function Stable: Yes Hydration Status Stable: Yes Pain Control Satisfactory: Yes Nausea and Vomiting Control Satisfactory: Yes Mental Status Recovered: Yes Resp Rate: 16
--- NOTE | 2018-09-20 12:38 | OR ---
SURGEON: Tanika Lubin MD DATE OF PROCEDURE: 09/20/2018 PREOPERATIVE DIAGNOSES: 1. Right shoulder impingement syndrome. 2. Right shoulder biceps tendinopathy. 3. Right shoulder acromioclavicular joint arthritis. POSTOPERATIVE DIAGNOSES: 1. Right shoulder impingement syndrome. 2. Right shoulder biceps tendinopathy. 3. Right shoulder acromioclavicular joint arthritis. 4. Right shoulder partial rotator cuff repair. PROCEDURES: Right shoulder arthroscopy with: 1. Subacromial decompression with release of coracoacromial ligament and acromioplasty. 2. Extensive debridement including debridement of partial rotator cuff tear and biceps tenotomy. 3. Arthroscopic distal clavicle excision. ASSISTANTS: Siomara Bustos PA-C and BUCK Arteaga ANESTHESIA: General with interscalene block. ESTIMATED BLOOD LOSS: 10 mL. TOURNIQUET TIME: 0 minutes. COMPLICATIONS: None. DVT PROPHYLAXIS: PAS boots to bilateral lower extremities. IMPLANTS USED: None. BRIEF HISTORY: Michael is a 58-year-old male who has had complaint of progressive right shoulder pain. He has tried conservative treatment, which has not given him lasting relief. Due to his lack of response to conservative treatment, I did recommend surgical intervention. The risks and goals of procedure were discussed with the patient and were documented preoperatively. He agreed to proceed. DESCRIPTION OF PROCEDURE: The patient was properly identified and brought to the operating room. He was transferred from the OR cart and placed on the operating table in supine position. General anesthesia was administered. An interscalene block had been administered preoperatively. After adequate anesthesia was obtained, the patient was placed into a beach-chair type position. His head was secured. Care was taken to pad all bony prominences. The right upper extremity was then prepped in standard fashion using ChloraPrep solution. It was then sterilely draped. A time-out was performed to ensure correct site and procedure. Preoperative antibiotics were given. The surgical site had been marked preoperatively. A marking pen was used to identify the bony landmarks. Approximately 30 mL of normal saline was introduced into the glenohumeral joint. A posterior portal arthrotomy was established. Blunt trocar and cannula were introduced into the glenohumeral joint. Camera, inflow, and outflow were assembled. The rotator interval showed mild synovitis. An anterior portal was then established. A probe was inserted. The subscapularis was visualized, probed, and found to be intact. No loose bodies were identified within the subscapular recess. He was found to have degenerative tearing of the anterior labrum. This was resected with electrocautery. It was again probed and found to be stable. The biceps was then inspected. The insertion onto the superior labrum appeared intact. The biceps was then pulled into the joint and significant synovitis along with mild longitudinal tearing was noted distally. It was elected to proceed with a biceps tenotomy. Electrocautery was used to amputate the biceps at its insertion point. The biceps retracted easily into the bicipital tendon sheath. Its attachment was then smoothed. Posterior labrum showed no significant tearing. Both the glenoid and humeral head were then inspected. Minor grade 1 to grade 2 degenerative changes were noted. I then entered the axillary pouch and no loose bodies were identified. There was mild synovitis noted. The arm was then brought into an abducted and externally rotated position. The bare area was noted posteriorly. As I progressed forward, there appeared to be tearing of the rotator cuff tendon intra-articularly. I did use a shaver to debride the partial tear. This did not appear to be full-thickness and appeared to involve less than 5 mm of the attachment. The arm was then brought back into a neutral position. The blunt trocar and cannula were then introduced into the subacromial space. He had extensive bursitis present. A lateral portal was established and a shaver was introduced. An extensive bursectomy was then performed to allow visualization. The coracoacromial ligament was released off the anterior aspect of the acromion. He had a large spur along the anterior and medial aspect of the acromion, which appeared to be causing significant impingement. A 5.0 mm santhosh was then used to perform an acromioplasty. This provided good decompression of the subacromial space. The rotator cuff was then extensively probed and visualized. There did not appear to be any softening or tearing along the subacromial aspect of the cuff tear. Since the intra-articular portion was less than 5 mm, I elected to leave the cuff alone. I then turned my attention to the distal clavicle. Soft tissue surrounding the distal clavicle was excised. A 5.0 mm santhosh was then used to resect approximately 8 mm of the distal clavicle. Care was taken to maintain the superior capsule. The instruments were then removed from the shoulder. The portal sites were closed with 3-0 nylon. Xeroform gauze was placed over the wound and a bulky dressing was applied. He was awakened from his anesthetic and placed into a sling. He was brought to recovery room in stable condition. All needle and sponge counts were correct. CHEVY GARCIA /[id number]
[2018-09-20 12:48] VITALS: BP 100/54
== END 2018-09-20 12:55 | disposition home or self-care (01) ==
LOC: MW.SDS 06:40
PROVIDERS: ATTEND Orthopaedic Surgery
DX: M75.41 Impingement syndrome of right shoulder (principal); M13.811 Other specified arthritis, right shoulder; M75.111 Incomplete rotator cuff tear or rupture of right shoulder, not specified as traumatic; M65.811 Other synovitis and tenosynovitis, right shoulder; G47.33 Obstructive sleep apnea (adult) (pediatric); I10 Essential (primary) hypertension; E13.40 Other specified diabetes mellitus with diabetic neuropathy, unspecified; E66.9 Obesity, unspecified; F17.210 Nicotine dependence, cigarettes, uncomplicated; Z79.4 Long term (current) use of insulin; Z79.899 Other long term (current) drug therapy; Z99.89 Dependence on other enabling machines and devices
CPT/HCPCS: 29823; 29824; 29826; 29827; 64415; A9270; J0690; J1100; J1200; J1885; J2001; J2250; J2370; J2405; J2704; J2765; J3010; J3490; J7120; 88304

== ENCOUNTER 2018-11-02 06:44 | Inpatient (IN) | payer BC ==
[2018-11-02] MEDS ORDERED: Propofol 200 MG/20 ML SDV ONE ×3 (07:18→09:37)
[2018-11-02] MEDS ORDERED: Midazolam 1 MG/ML 2 ML SDV ONE (07:18)
[2018-11-02] MEDS ORDERED: fentaNYL 100 MCG/2 ML SDV ONE (07:18)
[2018-11-02] MEDS: Lactated Ringers 1,000 ML IV SCH ×2 (07:20→14:55)
--- NOTE | 2018-11-02 07:36 | PCM.PREANE ---
Preanesthetic Assessment - Anesthesia/Transfusion/Family Hx Anesthesia History: Prior Anesthesia Without Reaction Family History of Anesthesia Reaction: No Transfusion History: No Prior Transfusion(s) - Review of Systems General: No Symptoms Pulmonary: Other (cade uses cpap) Cardiovascular: No Symptoms Gastrointestinal: No Symptoms Neurological: No Symptoms Other: Reports: None - Physical Assessment NPO Status Date: 11/01/18 NPO Status Time: 23:30 O2 Sat by Pulse Oximetry: 96 Respiratory Rate: 18 Vital Signs: Last Vital Signs Temp 98.1 F 11/02/18 07:10 Pulse 76 11/02/18 07:10 Resp 18 11/02/18 07:10 BP 114/75 11/02/18 07:10 Pulse Ox 96 11/02/18 07:10 Height: 6 ft 5 in Weight: 140.614 kg ASA Class: 3 Mental Status: Alert & Oriented x3 Airway Class: Mallampati = 1 Dentition: Reports: Normal Dentition ROM/Head Extension: Full Lungs: Clear to Auscultation, Normal Respiratory Effort Cardiovascular: Regular Rate, Regular Rhythm - Allergies Allergies/Adverse Reactions: Allergies Allergy/AdvReac Type Severity Reaction Status Date / Time No Known Allergies Allergy Verified 10/29/18 09:54 - Blood Blood Available: No - Anesthesia Plan Pre-Op Medication Ordered: None - Acknowledgements Anesthesia Type Planned: General Anesthesia Pt an Appropriate Candidate for the Planned Anesthesia: Yes Alternatives and Risks of Anesthesia Discussed w Pt/Guardian: Yes Pt/Guardian Understands and Agrees with Anesthesia Plan: Yes Additional Comments: PMH: DM@-on insulin, [id number], CADE uses cpap, polyneuropathy PLAN: spinal with sedation PreAnesthesia Questionnaire HEENT History: Reports: Hard of Hearing, Other (See Below) Other HEENT History: wears glasses, has left hearing aide Cardiovascular History: Reports: Hypertension Respiratory History: Reports: Sleep Apnea Other Respiratory History: uses CPAP Gastrointestinal History: Reports: None Genitourinary History: Reports: None Musculoskeletal History: Reports: Back Pain, Chronic, Fracture, Osteoarthritis Other Musculoskeletal History: hx of fx clavicle and hand Neurological History: Reports: Neuropathy, Peripheral Endocrine/Metabolic History: Reports: Diabetes, Type II, IDDM, Obesity/BMI 30+ - Past Surgical History Head Surgeries/Procedures: Reports: None GI Surgical History: Reports: Appendectomy Neurological Surgical History: Reports: C-Spine, Vertebroplasty Other Neurological Surgeries/Procedures: states no hardware Musculoskeletal Surgical History: Reports: Carpal Tunnel, Knee Replacement, Shoulder Surgery, Other (See Below) Other Musculoskeletal Surgeries/Procedures:: hx of right shoulder arthroscopy, right TKA, shaving of bone in foot, right CTR - SUBSTANCE USE Smoking Status *Q: Current Every Day Smoker Tobacco Use Within Last Twelve Months: Cigarettes, Smokeless Tobacco Days Per Week of Alcohol Use: 2 Number of Drinks Per Day: 0 Total Drinks Per Week: 0 Recreational Drug Use History: No - HOME MEDS Home Medications: Home Meds Gabapentin [Neurontin] 2,400 mg PO QPM 07/04/15 [History] Insulin Aspart [NovoLOG] 12 unit SQ ACBREAKFASTANDBED 07/04/15 [History] Insulin Glarg,Human.Rec.Analog [Lantus] 42 unit SQ ACBREAKFAST 07/04/15 [History ] Liraglutide [Victoza] 1.8 mg SQ QAM 07/04/15 [History] Lisinopril 10 mg PO QAM 07/04/15 [History] metFORMIN HCl [Metformin HCl] 1,000 mg PO BID 07/04/15 [History] Aspirin [Adult Low Dose Aspirin EC] 81 mg PO DAILY 10/29/18 [History] - CURRENT (IN HOUSE) MEDS Current Meds: Current Medications Lactated Ringer's (Ringers, Lactated) 1,000 mls @ 100 mls/hr IV ASDIRECTED [facility] Last Admin: 11/02/18 07:20 Dose: 100 mls/hr Cefazolin Sodium/Dextrose 2 gm (/ Premix) 50 mls @ 100 mls/hr IV ONETIME [facility] Discontinued Medications Fentanyl (Sublimaze) Confirm Administered Dose 100 mcg .ROUTE .STK-MED ONE Stop: 11/02/18 07:19 Midazolam HCl (Versed 1 Mg/Ml) Confirm Administered Dose 2 mg .ROUTE .STK-MED ONE Stop: 11/02/18 07:19 Propofol (Diprivan 20 Ml) Confirm Administered Dose 600 mg .ROUTE .STK-MED ONE Stop: 11/02/18 07:19 Tranexamic Acid (Cyklokapron) 2,000 mg IV ONETIME ONE Stop: 11/02/18 07:01
[2018-11-02] MEDS ORDERED: Ketamine 500 mg/10 ML MDV ONE (07:58)
[2018-11-02] MEDS ORDERED: ceFAZolin 1 GM Vial ONE (08:48)
[2018-11-02] MEDS ORDERED: ePHEDrine 50 MG/ML SDV ONE (08:48)
[2018-11-02] MEDS ORDERED: Sodium Chloride 0.9% 40 ML ONE (08:48)
[2018-11-02] MEDS ORDERED: fentaNYL 100 MCG/2 ML SDV IVPUSH PRN (08:50)
[2018-11-02] MEDS ORDERED: HYDROmorphone 2 MG/ML Syringe IVPUSH ONE (08:50)
[2018-11-02] MEDS ORDERED: Meperidine PF 25 MG/ML Syringe IVPUSH ONE (08:50)
[2018-11-02] MEDS ORDERED: Promethazine 25 MG/ML SDV IM ONE (08:50)
[2018-11-02] MEDS ORDERED: HYDROmorphone 2 MG/ML Syringe ONE (09:48)
--- NOTE | 2018-11-02 09:49 | PCM.OPNOTE ---
- General Post-Op/Procedure Note Date of Surgery/Procedure: 11/02/18 Operative Procedure(s): left anterior total hip arthroplasty Findings: osteoarthritis Pre Op Diagnosis: left hip osteoarthritis Post-Op Diagnosis: same Anesthesia Technique: Moderate Sedation, Spinal Primary Surgeon: Tate Chacko Mai Salt Miner: Siomara Bustos Pathology: femoral head EBL in mLs: 500 Complications: none Condition: Good
[2018-11-02] MEDS ORDERED: Ondansetron 4 MG/2 ML SDV IV PRN (09:51)
[2018-11-02] MEDS ORDERED: diphenhydrAMINE 25 MG Cap PO PRN (09:51)
[2018-11-02] MEDS ORDERED: Bisacodyl 10 MG Supp RECTAL PRN (09:51)
[2018-11-02] MEDS ORDERED: Aluminum Hydroxide/Magnesium Hydroxide/Simethicone Susp 30 ML Cup PO PRN (09:51)
[2018-11-02] MEDS: Ketorolac 30 MG/ML SDV IVPUSH SCH ×3 (10:31→21:39)
--- NOTE | 2018-11-02 10:41 | PCM.POSTAN ---
POST ANESTHESIA ASSESSMENT - MENTAL STATUS Mental Status: Alert, Oriented - RESPIRATORY Respiratory Status: Respiratory Rate WNL, Airway Patent, O2 Saturation Stable - CARDIOVASCULAR CV Status: Pulse Rate WNL, Blood Pressure Stable - GASTROINTESTINAL GI Status: No Symptoms - PAIN Pain Score: 0 - POST OP HYDRATION Hydration Status: Adequate & Stable
--- NOTE | 2018-11-02 11:10 | OR ---
SURGEON: Tate Dougherty MD DATE OF PROCEDURE: 11/02/2018 [employer] WORKER: Siomara Bustos PA-C PREOPERATIVE DIAGNOSIS: Left hip osteoarthritis. POSTOPERATIVE DIAGNOSIS: Left hip osteoarthritis. OPERATION PERFORMED: Left anterior total hip arthroplasty. ANESTHESIA: Spinal with sedation. COMPLICATION: None. ESTIMATED BLOOD LOSS: 500 mL. SPECIMENS: Femoral head. IMPLANT: Melecio Continuum trabecular metal shell with cluster holes, 60 mm outer diameter, Vivacit-E neutral liner 36 mm inner diameter, one 6.5 x 30 mm length bone screw, ML taper press-fit stem, size 12.5, extended offset, Biolox delta ceramic femoral head 36 mm diameter, zero neck length. INDICATIONS: The patient is a 58-year-old male with arthritis. He has failed conservative management, modification therapy, injections, chronic pain on a daily basis hindering activities. He wished to undergo replacement. He understands the risks, benefits, alternatives, complications of procedure including but not limited to infection, neurovascular injury, continued pain, DVT, PE, stroke, [place], , leg-length discrepancy, fracture, dislocation, and he wished to proceed. DESCRIPTION OF PROCEDURE: The patient was seen in the preoperative area. Operative extremity was marked with patient. He was transferred to the operating room. Spinal anesthesia was given. He was placed supine on the Bonner table. Legs were placed in legs bars with a narrow perineal post. He received preop antibiotics Ancef 2 g and TXA. Left hip was prepped and draped in sterile fashion using alcohol followed by ChloraPrep with Ioban covering. A formal time-out was taken, identifying the correct patient, procedure and extremity. An 8 cm incision starting lateral to the ASIS going obliquely to the femur was made. Dissection was carried down through the subcutaneous tissues. Hemostasis was obtained. The fascia overlying the TFL lateral to the lateral femoral cutaneous nerve was opened and the interval between TFL and sartorius deep between the abductors rectus was opened. The vastus lateralis fascia was opened and the anterior vessels were coagulated. A deep Mike tractor was placed. The capsule was held and tagged with two sutures releasing the indirect head of the rectus and deep retractors were placed. Neck was cut from the saddle region to 1 cm above the lesser trochanter. The head was removed. The head measured approximately 55 to 56 mm. There was noted to be moderate arthritis. The inferior capsule was released preserving the iliopsoas tendon. The labral remnants and pulvinar were removed and then sequential reaming from 53 up to 59 mm was made going slightly superomedial to get good fit and fill. After planing the bed to make sure it was level under fluoroscopic control, a Continuum trabecular metal shell with cluster holes placed with screw holes straight superior in 40 degrees of abduction, 10 degrees of anteversion. This had excellent press fit. Once straight superior bone screw was placed after drilling the hip was irrigated out and the neutral liner was impacted. The femoral lift was placed. The leg was externally rotated, abducted, and extended. The superior capsule and obturator internus were released preserving the piriformis. The central canal finder was utilized and it was sequentially broached following the [place] version from size 4 up to size 12.5. It was trial reduced with extended offset, zero neck length. Printed overlay technique showed offset to be increased 1-2 mm and the hip to be 1-2 mm short, but the stem fit very well. There was no Shuck and there was stable range of motion. The hip was then dislocated. The final stem was impacted following the [place] version, a 12.5 extended offset ML taper. It was trial reduced with a +3.5 neck length. Printed overlay technique showed increased offset and slightly increased leg length; therefore the hip was dislocated, and the final zero neck 36 mm head was impacted. Hip was relocated. The two tag sutures were tied together. The fascia was closed with #1 Vicryl. Subcu tissues with 2-0 Stratafix and skin with running 4-0 Monocryl. Dermabond tape and Aquacel dressing were placed. The patient was transferred to the recovery room in stable condition. Sponge and needle counts were correct at the end of the case. No complications. He will take aspirin for DVT prophylaxis. JEANETH / RADHA /[id number]
--- NOTE | 2018-11-02 11:21 | PCM.CONS ---
H&P History of Present Illness - General Date of Service: 11/02/18 Admit Problem/Dx: Admission Diagnosis/Problem Admission Diagnosis/Problem Hip replacement planned Source of Information: Patient, Old Records (pre-operative H/P) History Limitations: Reports: No Limitations - History of Present Illness Initial Comments - Free Text/Narative: This 58 year old male with pmh of DM Type 2, HTN, and NICOLE with CPAP presented to L anterior hip arthroplasty with Dr Dougherty. He recently arrived to the Medical floor from the PACU, he is alert and oriented talking with and nurse. Reports he is feeling good, mild pain to L hip 11/10 and just received pain medication. He denies chest pain or SOB. No other concerns He reports he has CPAP along to use tonight for NICOLE. He reports he is well controlled on Novolog 12 units with morning meal and supper along with 42 units of Lantus in the morning. A1c 7.4. He recently had shoulder surgery, September 2018, and did well post-operatively. PCP, Dr Garland - Related Data Allergies/Adverse Reactions: Allergies Allergy/AdvReac Type Severity Reaction Status Date / Time No Known Allergies Allergy Verified 10/29/18 09:54 Home Medications: Home Meds Gabapentin [Neurontin] 2,400 mg PO QPM 07/04/15 [History] Insulin Aspart [NovoLOG] 12 unit SQ ACBREAKFASTANDBED 07/04/15 [History] Insulin Glarg,Human.Rec.Analog [Lantus] 42 unit SQ ACBREAKFAST 07/04/15 [History ] Liraglutide [Victoza] 1.8 mg SQ QAM 07/04/15 [History] Lisinopril 10 mg PO QAM 07/04/15 [History] metFORMIN HCl [Metformin HCl] 1,000 mg PO BID 07/04/15 [History] Aspirin [Adult Low Dose Aspirin EC] 81 mg PO DAILY 10/29/18 [History] Past Medical History HEENT History: Reports: Hard of Hearing, Other (See Below) Other HEENT History: wears glasses, has left hearing aide Cardiovascular History: Reports: Hypertension. Denies: Afib, CAD, Heart Failure , [place] Respiratory History: Reports: Sleep Apnea Other Respiratory History: uses CPAP Gastrointestinal History: Reports: None Genitourinary History: Reports: None Musculoskeletal History: Reports: Back Pain, Chronic, Fracture, Osteoarthritis Other Musculoskeletal History: hx of fx clavicle and hand Neurological History: Reports: Neuropathy, Peripheral. Denies: CVA, TIA Endocrine/Metabolic History: Reports: Diabetes, Type II, IDDM, Obesity/BMI 30+ - Past Surgical History Head Surgeries/Procedures: Reports: None GI Surgical History: Reports: Appendectomy Neurological Surgical History: Reports: C-Spine, Vertebroplasty Other Neurological Surgeries/Procedures: states no hardware Musculoskeletal Surgical History: Reports: Carpal Tunnel, Knee Replacement, Shoulder Surgery, Other (See Below) Other Musculoskeletal Surgeries/Procedures:: hx of right shoulder arthroscopy, right TKA, shaving of bone in foot, right CTR Social & Family History - Family History Family Medical History: Noncontributory - Tobacco Use Smoking Status *Q: Current Every Day Smoker Tobacco Use Within Last Twelve Months: Cigarettes, Smokeless Tobacco Years of Tobacco use: 30 Packs/Tins Daily: 0.5 Tobacco Use Comment: smokes half a PPD and chews a half can per day Smoking Cessation Information Provided To Patient: Yes - Caffeine Use Caffeine Use: Reports: Coffee - Alcohol Use Days Per Week of Alcohol Use: 2 Number of Drinks Per Day: 0 Total Drinks Per Week: 0 - Recreational Drug Use Recreational Drug Use: No Drug Use in Last 12 Months: No - Living Situation & Occupation Living situation: Reports: Occupation: Employed H&P Review of Systems - Review of Systems: Review Of Systems: See Below General: Reports: No Symptoms. Denies: Fever, Chills, Malaise, Weakness HEENT: Reports: No Symptoms. Denies: Contact Lenses, Headaches, Sore Throat, Vertigo Pulmonary: Reports: No Symptoms. Denies: Shortness of Breath Cardiovascular: Reports: No Symptoms. Denies: Chest Pain Gastrointestinal: Reports: No Symptoms. Denies: Abdominal Pain, Black Stool, Bloody Stool, Nausea, Vomiting Genitourinary: Reports: No Symptoms. Denies: Dysuria, Frequency, Burning Musculoskeletal: Reports: Joint Pain (L hip pain 4/10) Skin: Reports: No Symptoms Psychiatric: Reports: No Symptoms Neurological: Reports: No Symptoms Hematologic/Lymphatic: Reports: No Symptoms Immunologic: Reports: No Symptoms Exam - Exam Exam: See Below - Vital Signs Vital Signs: Last Vital Signs Temp 98.6 F 11/02/18 09:53 Pulse 70 11/02/18 10:28 Resp 13 11/02/18 10:28 BP 101/60 11/02/18 10:28 Pulse Ox 95 11/02/18 10:28 Weight: 140.614 kg - Exam General: Alert, Oriented, Cooperative HEENT: Conjunctiva Clear, Mucosa Moist & [place], Nares Patent, Pupils Equal Neck: Supple, Trachea Midline Lungs: Clear to Auscultation, Normal Respiratory Effort Cardiovascular: Regular Rate, Regular Rhythm, Normal S1, Normal S2 GI/Abdominal Exam: Normal Bowel Sounds, Soft, Non-Tender, No Organomegaly Back Exam: Normal Inspection, Full Range of Motion Extremities: Non-Tender, No Pedal Edema Skin: Incision (L hip) Neuro Extensive - Mental Status: Alert, Oriented x3 Neuro Extensive - Motor, Sensory, Reflexes: CN II-XII Intact Psychiatric: Alert, Normal Affect, Normal Mood - Patient Data Lab Results Last 24 hrs: Laboratory Results - last 24 hr 11/02/18 Range/Units 09:57 POC Glucose 183 H (60-110) mg/dL Result Diagrams: 11/02/18 11:45 11/02/18 11:45 Consult PN Assessment/Plan Procedures: Procedures ARTHROSCOP ROTATOR CUFF REPR (09/20/18) ASSAY CARBOXYHB QUANT (03/18/17) ASSAY GLUCOSE BLOOD QUANT (07/06/15) CHEST X-RAY 1 VIEW FRONTAL (03/18/17) COMPLETE CBC W/AUTO DIFF WBC (03/18/17) COMPREHEN METABOLIC PANEL (03/18/17) CT HEAD/BRAIN W/O DYE (03/18/17) CT MAXILLOFACIAL W/O DYE (03/18/17) DRAIN/INJ JOINT/BURSA W/O US (08/11/18) ELECTROCARDIOGRAM TRACING (03/18/17) EMERGENCY DEPT VISIT (07/12/17) EMERGENCY DEPT VISIT (03/18/17) GLUCOSE BLOOD TEST (07/12/17) MICROBE SUSCEPTIBLE DARLING (07/12/17) MRI JOINT UPR EXTREM W/O DYE (11/27/17) N BLOCK INJ BRACHIAL PLEXUS (09/20/18) NEEDLE LOCALIZATION BY XRAY (08/11/18) PROTHROMBIN TIME (03/18/17) PT EVAL HIGH COMPLEX 45 MIN (10/16/16) PT EVAL LOW COMPLEX 20 MIN (09/16/18) RBC SED RATE AUTOMATED (03/18/17) REVISE ULNAR NERVE AT ELBOW (08/28/17) ROUTINE VENIPUNCTURE (07/06/15) SHOULDER ARTHROSCOPY/SURGERY (09/20/18) SHOULDER ARTHROSCOPY/SURGERY (09/20/18) SHOULDER ARTHROSCOPY/SURGERY (09/20/18) THERAPEUTIC EXERCISES (09/16/18) ULTRASOUND THERAPY (09/16/18) URINALYSIS AUTO W/SCOPE (07/12/17) URINE BACTERIA CULTURE (07/12/17) URINE CULTURE/COLONY COUNT (07/12/17) US URINE CAPACITY MEASURE (07/12/17) X-RAY EXAM HIP UNI 2-3 VIEWS (08/05/18) X-RAY EXAM KNEE 4 OR MORE (01/21/18) X-RAY EXAM NECK SPINE 2-3 VW (08/12/16) X-RAY EXAM OF ELBOW (07/29/17) X-RAY EXAM OF SHOULDER (07/29/17) X-RAY EXAM UNILAT RIBS/CHEST (09/08/16) (1) HTN (hypertension) SNOMED Code(s): 35189619 Code(s): I10 - ESSENTIAL (PRIMARY) HYPERTENSION Current Visit: Yes Qualifiers: Hypertension type: essential hypertension Qualified Code(s): I10 - Essential (primary) hypertension (2) DM type 2 (diabetes mellitus, type 2) SNOMED Code(s): 73138095 Code(s): E11.9 - TYPE 2 DIABETES MELLITUS WITHOUT COMPLICATIONS Current Visit: Yes Qualifiers: Diabetes mellitus penitentiary insulin use: with penitentiary use Diabetes mellitus complication status: with neurologic complications Diabetes mellitus complication detail: with polyneuropathy Qualified Code(s): E11.42 - Type 2 diabetes mellitus with diabetic polyneuropathy; Z79.4 - roasterman (current) use of insulin (3) NICOLE on CPAP SNOMED Code(s): 44877349 Code(s): G47.33 - OBSTRUCTIVE SLEEP APNEA (ADULT) (PEDIATRIC); Z99.89 - DEPENDENCE ON OTHER ENABLING MACHINES AND DEVICES Current Visit: Yes (4) Smoker SNOMED Code(s): 52709680 Code(s): F17.200 - NICOTINE DEPENDENCE, UNSPECIFIED, UNCOMPLICATED Current Visit: Yes Problem List Initiated/Reviewed/Updated: Yes My Orders Last 24 Hours: My Active Orders 11/02/18 11:18 BMP [BASIC METABOLIC PANEL,BMP] [CHEM] Routine CBC WITH AUTO DIFF [HEME] Routine 11/02/18 11:20 Blood Glucose Check, Bedside [RC] TIDMEALS 11/02/18 11:30 Insulin Aspart [NovoLOG] See Protocol SUBCUT TIDAC 11/03/18 05:11 BMP [BASIC METABOLIC PANEL,BMP] [CHEM] AM 11/03/18 07:30 Insulin Glarg,Human.Rec.Analog 42 unit SQ ACBREAKFAST Plan: This 58 year old male admitted with L anterior hip arthroplasty, hospitalist service consulted for medical management. 1. S/P hip arthroplasty: Orders per Orthopedics 2. HTN: Stable, continue Lisinopril 3. Dm type 2: Stable, continue Lantus in the am and SSI Novolog with meals. 4. NICOLE on CPAP: Has CPAP available for use. Monitor for hypoxia. 5. Smoker: Discussed with him smoking cessation, agreed to start patches. Verified ok with Siomara and Dr Dougherty. Will start today. VTE prophylaxis: Recommended with deemed appropriate.
[2018-11-02] MEDS: Insulin Aspart 100 Units/ML 3 ML Pen SUBCUT SCH ×2 (11:46→18:25)
[2018-11-02] MEDS: Acetaminophen/HYDROcodone 325-7.5 MG Tab PO PRN ×2 (11:46→16:44)
[2018-11-02 12:27] LABS: CHLORIDE,CL 103 mmol/L (98-107); SODIUM,NA 138 mmol/L (136-148)
[2018-11-02] MEDS: Nicotine 14 MG/24 Hr Patch TRDERM SCH (14:53)
--- NOTE | 2018-11-02 15:47 | CR ---
EXAMINATION: Left hip HISTORY: Arthroplasty COMPARISON: 08/11/2018 TECHNIQUE: 3 images provided FINDINGS/IMPRESSION: Operative control films demonstrate left total hip hardware in good position and alignment.
[2018-11-02] MEDS: ceFAZolin 2 GM in Premix Bag 1 BAG IV SCH ×2 (16:44→16:48)
[2018-11-02] MEDS: Docusate Sodium 100 MG Cap PO SCH (21:38)
[2018-11-03] MEDS: Lactated Ringers 1,000 ML IV SCH
[2018-11-03] MEDS: Ketorolac 30 MG/ML SDV IVPUSH SCH (04:00)
[2018-11-03] MEDS: Acetaminophen/HYDROcodone 325-7.5 MG Tab PO PRN ×3 (04:45→10:25)
[2018-11-03 06:27] LABS: CHLORIDE,CL 102 mmol/L (98-107); SODIUM,NA 136 mmol/L (136-148)
[2018-11-03] MEDS ORDERED: Sodium Chloride 0.9% 10 ML Syringe FLUSH PRN (07:14)
[2018-11-03] MEDS ORDERED: Sodium Chloride 0.9% 2.5 ML Syringe FLUSH PRN (07:14)
--- NOTE | 2018-11-03 07:15 | PCM.SN ---
- Free Text/Narrative Note: S: doing well. Pain controlled. has ambulated. no CP/SOB. no other issues O: afebrile, vital signs stable dressing clean/dry/intact. no swelling in thigh or distally. sensation intact distally and active motor. 2+ DP A/P: POD #1 Left KAITLIN - full weight bearing, walker - ecotrin and SCDs for DVT prophylaxis - to home today, f/u in 2 weeks.
[2018-11-03] MEDS ORDERED: Insulin Glargine,Human Rec. Analog 100 Units/ML 3 ML Pen SUBCUT SCH (07:30)
[2018-11-03] MEDS: ceFAZolin 2 GM in Premix Bag 1 BAG IV SCH ×5 (07:34)
[2018-11-03] MEDS: Insulin Aspart 100 Units/ML 3 ML Pen SUBCUT SCH (07:40)
[2018-11-03] MEDS ORDERED: Aspirin 325 MG Tab PO SCH (09:00)
[2018-11-03] MEDS ORDERED: Lisinopril 10 MG Tab PO SCH (09:00)
[2018-11-03] MEDS ORDERED: Celecoxib 100 MG Cap PO SCH (09:00)
[2018-11-03] MEDS: Nicotine 14 MG/24 Hr Patch TRDERM SCH (09:56)
[2018-11-03] MEDS: Docusate Sodium 100 MG Cap PO SCH (09:56)
[2018-11-03 09:58] VITALS: BP 122/64
--- NOTE | 2018-11-03 10:13 | PCM.CONSN ---
- General Info Date of Service: 11/03/18 Admission Dx/Problem (Free Text): Admission Diagnosis/Problem Admission Diagnosis/Problem Hip replacement planned Subjective Update: Doing well this morning, no chest pain or SOB. Eager to go home today. Pain well controlled. Would like to continue nicotine patches at home for smoking cessation Functional Status: Reports: Pain Controlled, Tolerating Diet, Ambulating, Urinating - Review of Systems General: Reports: No Symptoms. Denies: Fever, Weakness, Fatigue, Malaise HEENT: Reports: No Symptoms. Denies: Headaches, Visual Changes Pulmonary: Reports: No Symptoms. Denies: Shortness of Breath, Cough, Sputum Cardiovascular: Reports: No Symptoms. Denies: Chest Pain Gastrointestinal: Reports: No Symptoms. Denies: Abdominal Pain, Nausea, Vomiting Genitourinary: Reports: No Symptoms. Denies: Dysuria, Frequency Musculoskeletal: Reports: No Symptoms Skin: Reports: No Symptoms Neurological: Reports: No Symptoms Psychiatric: Reports: No Symptoms - Patient Data Vitals - Most Recent: Last Vital Signs Temp 97.7 F 11/03/18 07:10 Pulse 77 11/03/18 07:10 Resp 14 11/03/18 07:10 BP 122/64 11/03/18 09:57 Pulse Ox 97 11/03/18 04:00 Weight - Most Recent: 140.614 kg I&O - Last 24 Hours: Intake & Output 11/02/18 11/03/18 11/03/18 22:59 06:59 14:59 Intake Total 775 820 Output Total 150 Balance 775 670 Lab Results Last 24 Hours: Laboratory Results - last 24 hr 11/02/18 11/02/18 11/02/18 Range/Units 11:45 11:45 15:53 WBC 12.82 H (4.0-11.0) K/uL RBC 4.58 (4.50-5.90) M/uL Hgb 14.1 (13.0-17.0) g/dL Hct 40.6 (38.0-50.0) % MCV 88.6 (80.0-98.0) fL MCH 30.8 (27.0-32.0) pg MCHC 34.7 (31.0-37.0) g/dL RDW Std Deviation 44.2 (28.0-62.0) fl RDW Coeff of Claire 14 (11.0-15.0) % Plt Count 182 (150-400) K/uL MPV 11.00 (7.40-12.00) fL Neut % (Auto) 78.3 (48.0-80.0) % Lymph % (Auto) 14.2 L (16.0-40.0) % [place] % (Auto) 6.3 (0.0-15.0) % Eos % (Auto) 1.0 (0.0-7.0) % Baso % (Auto) 0.2 (0.0-1.5) % Neut # (Auto) 10.0 H (1.4-5.7) K/uL Lymph # (Auto) 1.8 (0.6-2.4) K/uL [place] # (Auto) 0.8 (0.0-0.8) K/uL Eos # (Auto) 0.1 (0.0-0.7) K/uL Baso # (Auto) 0.0 (0.0-0.1) K/uL Nucleated RBC % 0.0 /100WBC Nucleated RBCs # 0 K/uL Sodium 138 (136-148) mmol/L Potassium 4.5 (3.5-5.1) mmol/L Chloride 103 (98-107) mmol/L Carbon Dioxide 26.7 (21.0-32.0) mmol/L BUN 14 (7.0-18.0) mg/dL Creatinine 0.9 (0.8-1.3) mg/dL Est Cr Clr Drug Dosing 112.75 mL/min Estimated GFR (MDRD) > 60.0 ml/min Glucose 184 H (74-106) mg/dL POC Glucose 250 H (60-110) mg/dL Calcium 8.7 (8.5-10.1) mg/dL 11/03/18 11/03/18 11/03/18 Range/Units 04:53 05:30 05:30 WBC (4.0-11.0) K/uL RBC (4.50-5.90) M/uL Hgb 11.9 L (13.0-17.0) g/dL Hct 35.1 L (38.0-50.0) % MCV (80.0-98.0) fL MCH (27.0-32.0) pg MCHC (31.0-37.0) g/dL RDW Std Deviation (28.0-62.0) fl RDW Coeff of Claire (11.0-15.0) % Plt Count (150-400) K/uL MPV (7.40-12.00) fL Neut % (Auto) (48.0-80.0) % Lymph % (Auto) (16.0-40.0) % [place] % (Auto) (0.0-15.0) % Eos % (Auto) (0.0-7.0) % Baso % (Auto) (0.0-1.5) % Neut # (Auto) (1.4-5.7) K/uL Lymph # (Auto) (0.6-2.4) K/uL [place] # (Auto) (0.0-0.8) K/uL Eos # (Auto) (0.0-0.7) K/uL Baso # (Auto) (0.0-0.1) K/uL Nucleated RBC % /100WBC Nucleated RBCs # K/uL Sodium 136 (136-148) mmol/L Potassium 4.5 (3.5-5.1) mmol/L Chloride 102 (98-107) mmol/L Carbon Dioxide 25.0 (21.0-32.0) mmol/L BUN 17 (7.0-18.0) mg/dL Creatinine 1.0 (0.8-1.3) mg/dL Est Cr Clr Drug Dosing 101.48 mL/min Estimated GFR (MDRD) > 60.0 ml/min Glucose 209 H (74-106) mg/dL POC Glucose 207 H (60-110) mg/dL Calcium 8.1 L (8.5-10.1) mg/dL Med Orders - Current: Current Medications Hydrocodone Bitart/Acetaminophen ([place] 325-7.5 Mg) 1 - 2 tab PO Q4H PRN PRN Reason: Pain Last Admin: 11/03/18 04:45 Dose: 2 tab Al Hydroxide/Mg Hydroxide (Mag-Al Plus) 30 ml PO Q4H PRN PRN Reason: indigestion Aspirin (Aspirin) 325 mg PO BID [facility] Last Admin: 11/03/18 09:56 Dose: 325 mg Bisacodyl (Dulcolax) 10 mg RECTAL DAILY PRN PRN Reason: Constipation Celecoxib (Celebrex) 200 mg PO DAILY [facility] Last Admin: 11/03/18 09:56 Dose: 200 mg Diphenhydramine HCl (Benadryl) 25 - 50 mg PO Q6H PRN PRN Reason: Itching Docusate Sodium (Colace) 100 mg PO BID [facility] Last Admin: 11/03/18 09:56 Dose: 100 mg Lactated Ringer's (Ringers, Lactated) 1,000 mls @ 100 mls/hr IV ASDIRECTED [facility] Last Admin: 11/03/18 00:00 Dose: 100 mls/hr Cefazolin Sodium/Dextrose 2 gm (/ Premix) 50 mls @ 100 mls/hr IV ONETIME [facility] Insulin Aspart (Novolog) 0 unit SUBCUT TIDAC [facility]; Protocol Last Admin: 11/03/18 07:40 Dose: 4 units Insulin Glargine (Lantus Solostar) 42 units SUBCUT ACBREAKFAST [facility] Last Admin: 11/03/18 07:35 Dose: 42 units Lisinopril (Prinivil) 10 mg PO QAM [facility] Last Admin: 11/03/18 09:57 Dose: 10 mg Morphine Sulfate (Morphine Sulfate) 1 - 3 mg IV Q3H PRN PRN Reason: Pain Nicotine (Habitrol) 14 mg TRDERM DAILY [facility] Last Admin: 11/03/18 09:56 Dose: 14 mg Ondansetron HCl (Zofran) 4 mg IV Q6HR PRN PRN Reason: NAUSEA/VOMITING Sodium Chloride (Saline Flush) 10 ml FLUSH ASDIRECTED PRN PRN Reason: Keep Vein Open Sodium Chloride (Saline Flush) 2.5 ml FLUSH ASDIRECTED PRN PRN Reason: Keep Vein Open Discontinued Medications Cefazolin Sodium (Ancef) Confirm Administered Dose 3 gm .ROUTE .STK-MED ONE Stop: 11/02/18 08:49 Ephedrine Sulfate (Ephedrine Sulfate) Confirm Administered Dose 50 mg .ROUTE .STK-MED ONE Stop: 11/02/18 08:49 Fentanyl (Sublimaze) Confirm Administered Dose 100 mcg .ROUTE .STK-MED ONE Stop: 11/02/18 07:19 Fentanyl (Sublimaze) 50 mcg IVPUSH Q5M PRN PRN Reason: Pain (severe 7-10) Stop: 11/03/18 08:51 Hydromorphone HCl (Dilaudid) 2 mg IVPUSH ONETIME ONE Stop: 11/02/18 08:51 Last Admin: 11/02/18 11:14 Dose: Not Given Hydromorphone HCl (Dilaudid) Confirm Administered Dose 2 mg .ROUTE .STK-MED ONE Stop: 11/02/18 09:49 Sodium Chloride (Normal Saline) Confirm Administered Dose 40 mls @ as directed .ROUTE .STK-MED ONE Stop: 11/02/18 08:49 Lidocaine HCl (Xylocaine-Mpf 1%) Confirm Administered Dose 5 mls @ as directed .ROUTE .STK-MED ONE Stop: 11/02/18 08:49 Cefazolin Sodium/Dextrose 2 gm (/ Premix) 50 mls @ 100 mls/hr IV Q8H [facility] Stop: 11/03/18 08:29 Last Admin: 11/03/18 07:34 Dose: 100 mls/hr Ketamine HCl (Ketalar) Confirm Administered Dose 500 mg .ROUTE .STK-MED ONE Stop: 11/02/18 07:59 Ketorolac Tromethamine (Toradol) 30 mg IVPUSH Q6H [facility] Stop: 11/03/18 05:00 Last Admin: 11/03/18 04:00 Dose: 30 mg Meperidine HCl (Demerol) 12.5 mg IVPUSH ONETIME ONE Stop: 11/02/18 08:51 Last Admin: 11/02/18 11:14 Dose: Not Given Midazolam HCl (Versed 1 Mg/Ml) Confirm Administered Dose 2 mg .ROUTE .STK-MED ONE Stop: 11/02/18 07:19 Promethazine HCl (Phenergan) 12.5 mg IM ONETIME ONE Stop: 11/02/18 08:51 Last Admin: 11/02/18 11:15 Dose: Not Given Propofol (Diprivan 20 Ml) Confirm Administered Dose 600 mg .ROUTE .STK-MED ONE Stop: 11/02/18 07:19 Propofol (Diprivan 20 Ml) Confirm Administered Dose 200 mg .ROUTE .STK-MED ONE Stop: 11/02/18 09:10 Propofol (Diprivan 20 Ml) Confirm Administered Dose 200 mg .ROUTE .STK-MED ONE Stop: 11/02/18 09:38 Tranexamic Acid (Cyklokapron) 2,000 mg IV ONETIME ONE Stop: 11/02/18 07:01 Last Admin: 11/02/18 11:14 Dose: Not Given Tranexamic Acid (Cyklokapron) Confirm Administered Dose 2,000 mg .ROUTE .STK- MED ONE Stop: 11/02/18 07:34 - Exam General: Alert, Oriented, Cooperative, No Acute Distress Neck: Supple Lungs: Clear to Auscultation, Normal Respiratory Effort Cardiovascular: Regular Rate, Regular Rhythm GI/Abdominal Exam: Normal Bowel Sounds, Soft, Non-Tender, No Organomegaly Back Exam: Normal Inspection Extremities: Normal Inspection, Normal Range of Motion, Non-Tender, No Pedal Edema Neurological: No New Focal Deficit Psy/Mental Status: Alert, Normal Affect, Normal Mood Consult PN Assessment/Plan Procedures: Procedures ARTHROSCOP ROTATOR CUFF REPR (09/20/18) ASSAY CARBOXYHB QUANT (03/18/17) ASSAY GLUCOSE BLOOD QUANT (07/06/15) CHEST X-RAY 1 VIEW FRONTAL (03/18/17) COMPLETE CBC W/AUTO DIFF WBC (03/18/17) COMPREHEN METABOLIC PANEL (03/18/17) CT HEAD/BRAIN W/O DYE (03/18/17) CT MAXILLOFACIAL W/O DYE (03/18/17) DRAIN/INJ JOINT/BURSA W/O US (08/11/18) ELECTROCARDIOGRAM TRACING (03/18/17) EMERGENCY DEPT VISIT (07/12/17) EMERGENCY DEPT VISIT (03/18/17) GLUCOSE BLOOD TEST (07/12/17) MICROBE SUSCEPTIBLE DARLING (07/12/17) MRI JOINT UPR EXTREM W/O DYE (11/27/17) N BLOCK INJ BRACHIAL PLEXUS (09/20/18) NEEDLE LOCALIZATION BY XRAY (08/11/18) PROTHROMBIN TIME (03/18/17) PT EVAL HIGH COMPLEX 45 MIN (10/16/16) PT EVAL LOW COMPLEX 20 MIN (09/16/18) RBC SED RATE AUTOMATED (03/18/17) REVISE ULNAR NERVE AT ELBOW (08/28/17) ROUTINE VENIPUNCTURE (07/06/15) SHOULDER ARTHROSCOPY/SURGERY (09/20/18) SHOULDER ARTHROSCOPY/SURGERY (09/20/18) SHOULDER ARTHROSCOPY/SURGERY (09/20/18) THERAPEUTIC EXERCISES (09/16/18) ULTRASOUND THERAPY (09/16/18) URINALYSIS AUTO W/SCOPE (07/12/17) URINE BACTERIA CULTURE (07/12/17) URINE CULTURE/COLONY COUNT (07/12/17) US URINE CAPACITY MEASURE (07/12/17) X-RAY EXAM HIP UNI 2-3 VIEWS (08/05/18) X-RAY EXAM KNEE 4 OR MORE (01/21/18) X-RAY EXAM NECK SPINE 2-3 VW (08/12/16) X-RAY EXAM OF ELBOW (07/29/17) X-RAY EXAM OF SHOULDER (07/29/17) X-RAY EXAM UNILAT RIBS/CHEST (09/08/16) (1) HTN (hypertension) SNOMED Code(s): 66240661 Code(s): I10 - ESSENTIAL (PRIMARY) HYPERTENSION Current Visit: Yes Qualifiers: Hypertension type: essential hypertension Qualified Code(s): I10 - Essential (primary) hypertension (2) DM type 2 (diabetes mellitus, type 2) SNOMED Code(s): 11163142 Code(s): E11.9 - TYPE 2 DIABETES MELLITUS WITHOUT COMPLICATIONS Current Visit: Yes Qualifiers: Diabetes mellitus horse breaker insulin use: with group home use Diabetes mellitus complication status: with neurologic complications Diabetes mellitus complication detail: with polyneuropathy Qualified Code(s): E11.42 - Type 2 diabetes mellitus with diabetic polyneuropathy; Z79.4 - group home (current) use of insulin (3) NICOLE on CPAP SNOMED Code(s): 34377790 Code(s): G47.33 - OBSTRUCTIVE SLEEP APNEA (ADULT) (PEDIATRIC); Z99.89 - DEPENDENCE ON OTHER ENABLING MACHINES AND DEVICES Current Visit: Yes (4) Smoker SNOMED Code(s): 24661427 Code(s): F17.200 - NICOTINE DEPENDENCE, UNSPECIFIED, UNCOMPLICATED Current Visit: Yes Problem List Initiated/Reviewed/Updated: Yes My Orders Last 24 Hours: My Active Orders 11/02/18 11:20 Blood Glucose Check, Bedside [RC] TIDMEALS 11/02/18 11:30 Insulin Aspart [NovoLOG] See Protocol SUBCUT TIDAC 11/02/18 12:45 Nicotine [Habitrol] 14 mg TRDERM DAILY 11/03/18 07:30 Insulin Glarg,Human.Rec.Analog [LantUS Solostar] 42 units SUBCUT ACBREAKFAST Plan: This 58 year old male admitted with L anterior hip arthroplasty, hospitalist service consulted for medical management. 1. S/P hip arthroplasty: Orders per Orthopedics 2. HTN: Stable, continue Lisinopril 3. Dm type 2: Stable, continue Lantus in the am and SSI Novolog with meals. 4. NICOLE on CPAP: Has CPAP available for use. Monitor for hypoxia. 5. Smoker: Sent prescription to pharmacy. VTE prophylaxis: Recommended with deemed appropriate.
--- NOTE | 2018-11-04 07:06 | PCM.DCSUM1 ---
Discharge Summary - Hospital Course Brief History: Patient was admitted for a left hip replacement. He went underwent uneventful surgery and postoperatively was admitted floor where his pain was controlled and his diet was advanced. He participated in physical therapy and did well postoperatively. He essentially discharged home on postoperative day #1. He'll return to clinic in 2 weeks as he will not change his bandage and he'll take aspirin for DVT prophylaxis Diagnosis: Stroke: No - Discharge Data Discharge Date: 11/03/18 Discharge Disposition: Home, Self-Care 01 Condition: Good - Patient Summary/Data Operative Procedure(s) Performed: left anterior total hip arthroplasty Consults: Consultations 11/02/18 09:50 Consult to Physician [CONS] Routine PT Evaluation and Treatment [CONS] Routine - Patient Instructions Diet: Usual Diet as Tolerated Activity: Apply Ice, Full Weight Bearing Driving, Other: may drive when not taking narcotics Showering/Bathing: May Shower Wound/Incision Care: Keep Operative Site/Wound Site Clean and Dry, Do NOT Change Dressing Notify Provider of: Fever, Swelling and Redness, Drainage - Discharge Plan *PRESCRIPTION DRUG MONITORING PROGRAM REVIEWED*: No *COPY OF PRESCRIPTION DRUG MONITORING REPORT IN PATIENT JOAO: No Prescriptions/Med Rec: Nicotine [Habitrol] 14 mg TRDERM DAILY #1 box Home Medications: Home Meds Gabapentin [Neurontin] 2,400 mg PO QPM 07/04/15 [History] Insulin Aspart [NovoLOG] 12 unit SQ ACBREAKFASTANDBED 07/04/15 [History] Insulin Glarg,Human.Rec.Analog [Lantus] 42 unit SQ ACBREAKFAST 07/04/15 [History ] Liraglutide [Victoza] 1.8 mg SQ QAM 07/04/15 [History] Lisinopril 10 mg PO QAM 07/04/15 [History] metFORMIN HCl [Metformin HCl] 1,000 mg PO BID 07/04/15 [History] Aspirin [Adult Low Dose Aspirin EC] 81 mg PO DAILY 10/29/18 [History] Nicotine [Habitrol] 14 mg TRDERM DAILY #1 box 11/03/18 [Rx] Patient Handouts: Acetaminophen; Hydrocodone tablets or capsules, Total Hip Replacement, Care After, [id number], Docusate capsules, Aspirin capsules or tablets extended release Referrals: Siomara Bustos PA [Physician Piece Goods Clerk] - 11/16/18 9:40 am - Discharge Summary/Plan Comment DC Time >30 min.: No - Patient Data Vitals - Most Recent: Last Vital Signs Temp 36.5 C 11/03/18 07:10 Pulse 77 11/03/18 07:10 Resp 14 11/03/18 07:10 BP 122/64 11/03/18 09:57 Pulse Ox 97 11/03/18 04:00 Weight - Most Recent: 140.614 kg Med Orders - Current: Current Medications Discontinued Medications Hydrocodone Bitart/Acetaminophen ([place] 325-7.5 Mg) 1 - 2 tab PO Q4H PRN PRN Reason: Pain Last Admin: 11/03/18 10:25 Dose: 2 tab Al Hydroxide/Mg Hydroxide (Mag-Al Plus) 30 ml PO Q4H PRN PRN Reason: indigestion Aspirin (Aspirin) 325 mg PO BID [facility] Last Admin: 11/03/18 09:56 Dose: 325 mg Bisacodyl (Dulcolax) 10 mg RECTAL DAILY PRN PRN Reason: Constipation Cefazolin Sodium (Ancef) Confirm Administered Dose 3 gm .ROUTE .STK-MED ONE Stop: 11/02/18 08:49 Celecoxib (Celebrex) 200 mg PO DAILY [facility] Last Admin: 11/03/18 09:56 Dose: 200 mg Diphenhydramine HCl (Benadryl) 25 - 50 mg PO Q6H PRN PRN Reason: Itching Docusate Sodium (Colace) 100 mg PO BID [facility] Last Admin: 11/03/18 09:56 Dose: 100 mg Ephedrine Sulfate (Ephedrine Sulfate) Confirm Administered Dose 50 mg .ROUTE .STK-MED ONE Stop: 11/02/18 08:49 Fentanyl (Sublimaze) Confirm Administered Dose 100 mcg .ROUTE .STK-MED ONE Stop: 11/02/18 07:19 Fentanyl (Sublimaze) 50 mcg IVPUSH Q5M PRN PRN Reason: Pain (severe 7-10) Stop: 11/03/18 08:51 Hydromorphone HCl (Dilaudid) 2 mg IVPUSH ONETIME ONE Stop: 11/02/18 08:51 Last Admin: 11/02/18 11:14 Dose: Not Given Hydromorphone HCl (Dilaudid) Confirm Administered Dose 2 mg .ROUTE .STK-MED ONE Stop: 11/02/18 09:49 Lactated Ringer's (Ringers, Lactated) 1,000 mls @ 100 mls/hr IV ASDIRECTED [facility] Last Admin: 11/03/18 00:00 Dose: 100 mls/hr Cefazolin Sodium/Dextrose 2 gm (/ Premix) 50 mls @ 100 mls/hr IV ONETIME [facility] Sodium Chloride (Normal Saline) Confirm Administered Dose 40 mls @ as directed .ROUTE .STK-MED ONE Stop: 11/02/18 08:49 Lidocaine HCl (Xylocaine-Mpf 1%) Confirm Administered Dose 5 mls @ as directed .ROUTE .STK-MED ONE Stop: 11/02/18 08:49 Cefazolin Sodium/Dextrose 2 gm (/ Premix) 50 mls @ 100 mls/hr IV Q8H [facility] Stop: 11/03/18 08:29 Last Admin: 11/03/18 07:34 Dose: 100 mls/hr Insulin Aspart (Novolog) 0 unit SUBCUT TIDAC [facility]; Protocol Last Admin: 11/03/18 07:40 Dose: 4 units Insulin Glargine (Lantus Solostar) 42 units SUBCUT ACBREAKFAST [facility] Last Admin: 11/03/18 07:35 Dose: 42 units Ketamine HCl (Ketalar) Confirm Administered Dose 500 mg .ROUTE .STK-MED ONE Stop: 11/02/18 07:59 Ketorolac Tromethamine (Toradol) 30 mg IVPUSH Q6H [facility] Stop: 11/03/18 05:00 Last Admin: 11/03/18 04:00 Dose: 30 mg Lisinopril (Prinivil) 10 mg PO QAM [facility] Last Admin: 11/03/18 09:57 Dose: 10 mg Meperidine HCl (Demerol) 12.5 mg IVPUSH ONETIME ONE Stop: 11/02/18 08:51 Last Admin: 11/02/18 11:14 Dose: Not Given Midazolam HCl (Versed 1 Mg/Ml) Confirm Administered Dose 2 mg .ROUTE .STK-MED ONE Stop: 11/02/18 07:19 Morphine Sulfate (Morphine Sulfate) 1 - 3 mg IV Q3H PRN PRN Reason: Pain Nicotine (Habitrol) 14 mg TRDERM DAILY [facility] Last Admin: 11/03/18 09:56 Dose: 14 mg Ondansetron HCl (Zofran) 4 mg IV Q6HR PRN PRN Reason: NAUSEA/VOMITING Promethazine HCl (Phenergan) 12.5 mg IM ONETIME ONE Stop: 11/02/18 08:51 Last Admin: 11/02/18 11:15 Dose: Not Given Propofol (Diprivan 20 Ml) Confirm Administered Dose 600 mg .ROUTE .STK-MED ONE Stop: 11/02/18 07:19 Propofol (Diprivan 20 Ml) Confirm Administered Dose 200 mg .ROUTE .STK-MED ONE Stop: 11/02/18 09:10 Propofol (Diprivan 20 Ml) Confirm Administered Dose 200 mg .ROUTE .STK-MED ONE Stop: 11/02/18 09:38 Sodium Chloride (Saline Flush) 10 ml FLUSH ASDIRECTED PRN PRN Reason: Keep Vein Open Sodium Chloride (Saline Flush) 2.5 ml FLUSH ASDIRECTED PRN PRN Reason: Keep Vein Open Tranexamic Acid (Cyklokapron) 2,000 mg IV ONETIME ONE Stop: 11/02/18 07:01 Last Admin: 11/02/18 11:14 Dose: Not Given Tranexamic Acid (Cyklokapron) Confirm Administered Dose 2,000 mg .ROUTE .STK- MED ONE Stop: 11/02/18 07:34
== END 2018-11-03 10:35 | disposition home or self-care (01) | DRG 301 ==
LOC: MW.MS 06:44
PROVIDERS: ADMIT Orthopaedic Surgery; ATTEND Orthopaedic Surgery
PROC: 0SRB04A Replacement of Left Hip Joint with Ceramic on Polyethylene Synthetic Substitute, Uncemented, Open Approach (ICD-10-PCS; principal; 2018-11-02)
DX: M16.12 Unilateral primary osteoarthritis, left hip (principal); E11.42 Type 2 diabetes mellitus with diabetic polyneuropathy; E66.9 Obesity, unspecified; G47.33 Obstructive sleep apnea (adult) (pediatric); I10 Essential (primary) hypertension; H91.90 Unspecified hearing loss, unspecified ear; M54.9 Dorsalgia, unspecified; G89.29 Other chronic pain; F17.210 Nicotine dependence, cigarettes, uncomplicated; Z96.651 Presence of right artificial knee joint; Z79.82 Long term (current) use of aspirin; Z79.4 Long term (current) use of insulin; Z79.899 Other long term (current) drug therapy
CPT/HCPCS: 36415; 76000; 76000-26; 80048; 82962; 85014; 85018; 85025; 97161-GP; 97530-GP; A9270-GY; C1713; C1776; J0690; J1170; J1815-GY; J1885; J2001; J2250; J2704; J3010; J7120

== ENCOUNTER 2019-01-12 20:21 | Emergency (ER) | payer BC ==
[2019-01-12] MEDS ORDERED: Ketorolac 60 MG/2 ML SDV IM ONE (20:41)
--- NOTE | 2019-01-12 20:43 | EDM.PDOC ---
ED HPI GENERAL MEDICAL PROBLEM - General Chief Complaint: General Stated Complaint: FELL ON RT SIDE Time Seen by Provider: 01/12/19 20:24 - History of Present Illness INITIAL COMMENTS - FREE TEXT/NARRATIVE: HISTORY AND PHYSICAL: History of present illness: The patient is a 58-year-old male with a history of hypertension and diabetes who was had had a left hip arthroplasty and presents after tripping and falling 2 days ago and landing on his right side. He says that he tucked his arm against his body and landed on his arm and ribs and does not have any right upper extremity pain but has right ribs and chest wall pain. He says that it's hard to take a deep breath and he cannot cough and he has a known history of one pack a day smoking. He says that he does not feel short of breath but just that there is pain when he takes a deep breath. He has no left-sided pain no right upper extremity right lower extremity or hip pain no abdominal pain and he has been eating and drinking normally. The patient has taken 1 or 2 doses of ibuprofen but he has not taken anything regularly for the pain and he says he delayed coming in because he just "thought it would go away". With a provider at [facility] with whom he has not met regarding the symptoms and he has no other systemic complaints. He said the fall was a simple trip and he was not lightheaded or dizzy and he has no left-sided chest pain and no issues with urinary problems. He did not hit his face her head and he did not pass out or blackout nor does he have any neck or midline back pain. He says the pain in the ribs originates on the side and then radiates to the front and the back. The patient says that position changing and especially getting out of bed is very uncomfortable. He says he has a history of broken ribs on the left and this feels similarly Review of systems: As per history of present illness and below otherwise all systems reviewed and negative. Past medical history: As per history of present illness and as reviewed below otherwise noncontributory. Surgical history: As per history of present illness and as reviewed below otherwise noncontributory. Social history: No reported history of drug or alcohol abuse. Family history: As per history of present illness and as reviewed below otherwise noncontributory. Physical exam: General: Well-developed well-nourished overweight man who is nontoxic and vital signs are noted by me HEENT: Atraumatic, normocephalic, negative for conjunctival pallor or scleral icterus, mucous membranes moist, throat clear, neck supple, nontender, trachea midline. There is no evidence of any scalp defects or deformities nor is there any soft tissue swelling, there are no fascial defects or deformities or soft tissue swelling, there are no midline step-offs tenderness defects of the cervical spine Lungs: Clear to auscultation with diminished breath sounds in the bases, breath sounds equal bilaterally, chest wall on the right has diffuse tenderness along the mid rib cage area extending from mid axillary line was serially and anteriorly but there is no defects deformities crepitus ecchymosis or erythema appreciated. Heart: S1S2, regular rate and rhythm no overt murmurs Abdomen: Soft, nondistended, nontender. Negative for masses or hepatosplenomegaly. Negative for costovertebral tenderness. Bowel sounds are slightly hypoactive and more specifically there is no right upper quadrant tenderness Pelvis: Stable nontender. Genitourinary: Deferred. Rectal: Deferred. Extremities: Atraumatic, full range of motion of all extremities including the right upper extremity and on the right upper extremity there are some chronic skin changes seen but no palpable defects or deformities no soft tissue swelling and no tenderness. Neurovascular unremarkable. Neuro: Awake, alert, oriented. Cranial nerves II through XII unremarkable. Cerebellum unremarkable. Motor and sensory unremarkable throughout. Exam nonfocal. Back: There are no midline step-offs tenderness defects of the thoracic or lumbar spine and no posterior pelvis tenderness. There is posterior rib tenderness on the right as described above Diagnostics: Right ribs with chest x-ray Therapeutics: Toradol IM incentive spirometer Impression: Right chest wall contusion status post fall subacute Definitive disposition and diagnosis as appropriate pending reevaluation and review of above. right chest Pain Score (Numeric/FACES): 9 - Related Data Allergies Allergy/AdvReac Type Severity Reaction Status Date / Time No Known Allergies Allergy Verified 10/29/18 09:54 Home Meds: Home Meds Gabapentin [Neurontin] 1,200 mg PO QPM 07/04/15 [History] Insulin Aspart [NovoLOG] 12 unit SQ ACBREAKFASTANDBED 07/04/15 [History] Insulin Glarg,Human.Rec.Analog [Lantus] 42 unit SQ ACBREAKFAST 07/04/15 [History ] Liraglutide [Victoza] 1.8 mg SQ QAM 07/04/15 [History] Lisinopril 10 mg PO QAM 07/04/15 [History] metFORMIN HCl [Metformin HCl] 0 mg PO BID 07/04/15 [History] Aspirin [Adult Low Dose Aspirin EC] 81 mg PO DAILY 10/29/18 [History] Past Medical History HEENT History: Reports: Hard of Hearing, Other (See Below) Other HEENT History: wears glasses, has left hearing aide Cardiovascular History: Reports: Hypertension Respiratory History: Reports: Sleep Apnea Other Respiratory History: uses CPAP Gastrointestinal History: Reports: None Genitourinary History: Reports: None Musculoskeletal History: Reports: Back Pain, Chronic, Fracture, Osteoarthritis Other Musculoskeletal History: hx of fx clavicle and hand Neurological History: Reports: Neuropathy, Peripheral Endocrine/Metabolic History: Reports: Diabetes, Type II, IDDM, Obesity/BMI 30+ - Past Surgical History Head Surgeries/Procedures: Reports: None GI Surgical History: Reports: Appendectomy Neurological Surgical History: Reports: C-Spine, Vertebroplasty Other Neurological Surgeries/Procedures: states no hardware Musculoskeletal Surgical History: Reports: Carpal Tunnel, Knee Replacement, Shoulder Surgery, Other (See Below) Other Musculoskeletal Surgeries/Procedures:: hx of right shoulder arthroscopy, right TKA, shaving of bone in foot, right CTR Social & Family History - Family History Family Medical History: Noncontributory - Caffeine Use Caffeine Use: Reports: Coffee - Living Situation & Occupation Living situation: Reports: Occupation: Employed ED ROS GENERAL - Review of Systems Review Of Systems: ROS reveals no pertinent complaints other than HPI. ED EXAM, GENERAL - Physical Exam Exam: See Below (See dictation) Course - Vital Signs Last Recorded V/S: Last Vital Signs Temp 36.1 C 01/12/19 20:21 Pulse 90 01/12/19 20:21 Resp 18 01/12/19 20:21 BP 119/78 01/12/19 20:21 Pulse Ox 94 L 01/12/19 20:21 - Orders/Labs/Meds Orders: Active Orders 24 hr Category Date Time Status Communication Order [RC] STAT Care 01/12/19 21:32 Ordered Ribs 2V w Chest Rt [CR] Stat Exams 06/12/19 20:41 Taken Meds: Medications Discontinued Medications Generic Name Dose Route Start Last Admin Trade Name Leopoldo PRN Reason Stop Dose Admin Ketorolac Tromethamine 60 mg 01/12/19 20:41 01/12/19 21:22 Toradol IM 01/12/19 20:42 60 mg ONETIME ONE Administration Departure - Departure Time of Disposition: 21:33 Disposition: Home, Self-Care 01 Condition: Good Clinical Impression: Chest wall contusion Qualifiers: Encounter type: initial encounter Laterality: right Qualified Code(s): S20.211A - Contusion of right front wall of thorax, initial encounter - Discharge Information Referrals: Jon Garland MD [Primary Care Provider] - Forms: ED Department Discharge Additional Instructions: The following information is given to patients seen in the emergency department who are being discharged to home. This information is to outline your options for follow-up care. We provide all patients seen in our emergency department with a follow-up referral. The need for follow-up, as well as the timing and circumstances, are variable depending upon the specifics of your emergency department visit. If you don't have a primary care physician on staff, we will provide you with a referral. We always advise you to contact your personal physician following an emergency department visit to inform them of the circumstance of the visit and for follow-up with them and/or the need for any referrals to a consulting specialist. The emergency department will also refer you to a specialist when appropriate. This referral assures that you have the opportunity for followup care with a specialist. All of these measure are taken in an effort to provide you with optimal care, which includes your followup. Under all circumstances we always encourage you to contact your private physician who remains a resource for coordinating your care. When calling for followup care, please make the office aware that this follow-up is from your recent emergency room visit. If for any reason you are refused follow-up, please contact the [facility] emergency department at and ask to speak to the emergency department charge nurse. [address] [place] [address] Use ice to areas of discomfort and swelling and reduce and/or quit tobacco use. Use [id number] ibuprofen/Motrin in appropriate doses, 800 mg every 8 hours , and add Tylenol 1000 mg every 6-8 hours as needed for pain management. The pain will slowly improve over the next several days to one week. Please use the incentive spirometer you have been given to keep your lungs open and do 10 deep breaths in every 2 hours for the next several days. Please call and schedule a follow-up appointment with your provider in the clinic for reevaluation and further care and return to ER as needed and as discussed - My Orders Last 24 Hours: My Active Orders 01/12/19 20:41 Ribs 2V w Chest Rt [CR] Stat 01/12/19 21:32 Communication Order [RC] STAT - Assessment/Plan Last 24 Hours: My Active Orders 01/12/19 20:41 Ribs 2V w Chest Rt [CR] Stat 01/12/19 21:32 Communication Order [RC] STAT
--- NOTE | 2019-01-12 21:33 | CR ---
INDICATION: Fall 2 days ago TECHNIQUE: Chest and right ribs 4 views. COMPARISON: None FINDINGS: Cardiovascular and mediastinum: Heart size and vasculature are normal in caliber and appearance. Mediastinum is within normal limits. Lungs and pleural spaces: Lungs are clear. No sign of infiltrate or mass. No sign of pleural effusion. No pneumothorax. Bones and soft tissues: There are degenerative changes in the right acromioclavicular joint. Detailed oblique images of the right ribs demonstrate no fractures or bone lesions. IMPRESSION: Unremarkable chest and right ribs. Dictated by Gladis Dhillon MD @ Jan 12 2019 9:28PM Signed by Dr. Gladis Dhillon @ Jan 12 2019 9:31PM
[2019-01-12 23:25] VITALS: BP 130/84
== END 2019-01-12 21:42 | disposition home or self-care (01) ==
LOC: MW.ED 20:21
DX: S20.211A Contusion of right front wall of thorax, initial encounter (principal); I10 Essential (primary) hypertension; E11.42 Type 2 diabetes mellitus with diabetic polyneuropathy; Z79.4 Long term (current) use of insulin; Z79.899 Other long term (current) drug therapy; W01.0XXA Fall on same level from slipping, tripping and stumbling without subsequent striking against object, initial encounter
CPT/HCPCS: 71101; 96372; 99283; J1885

== ENCOUNTER 2022-11-05 07:27 | Day surgery (SDC) | payer BC ==
[~2022-11-05 07:27] MED LIST changes: -Ketorolac 10 MG Tab PO PRN
[2022-11-05] MEDS ORDERED: Propofol 200 MG/20 ML SDV ONE ×2 (08:50→09:16)
[2022-11-05] MEDS ORDERED: Lidocaine 2% 5 ML SDV ONE (08:50)
[2022-11-05 10:57] VITALS: BP 122/72; PULSE 68
== END 2022-11-05 10:00 | disposition home or self-care (01) ==
LOC: MW.SDS 07:27
PROVIDERS: ATTEND Surgery
DX: Z12.11 Encounter for screening for malignant neoplasm of colon (principal); D12.4 Benign neoplasm of descending colon; K57.30 Diverticulosis of large intestine without perforation or abscess without bleeding; K63.89 Other specified diseases of intestine; K64.8 Other hemorrhoids; I10 Essential (primary) hypertension; G43.909 Migraine, unspecified, not intractable, without status migrainosus; E11.42 Type 2 diabetes mellitus with diabetic polyneuropathy; E66.9 Obesity, unspecified; F17.210 Nicotine dependence, cigarettes, uncomplicated; Z79.84 Long term (current) use of oral hypoglycemic drugs; Z79.4 Long term (current) use of insulin; Z79.899 Other long term (current) drug therapy; Z80.0 Family history of malignant neoplasm of digestive organs
CPT/HCPCS: 45380; 45385; 82947; J2704; J7120; 00812; J3490